=== PATIENT | female | born 1950 | race Caucasian/White ===

== ENCOUNTER 2018-07-15 08:30 | Observation (INO) | payer MEDICARE ==
[~2018-07-15 08:30] MED LIST: Buffered Lidocaine 1% SYRIN* 1 ML/SYRINGE INTRADERM ONE; Dexamethasone IV* 4 MG/ML 1 ML (4 MG) IV SLOW PU ONE; Famotidine TAB* 20 MG PO ONE; Lactated Ringers 1000 ML Bag* 1,000 ML IV SCH
[2018-07-15] MEDS ORDERED: Midazolam* 1 MG/ML 2 ML VIAL (2 MG) ONE (09:34)
[2018-07-15] MEDS ORDERED: fentaNYL* 50 MCG/ML 5 ML VIAL (250 MCG VIAL) ONE (09:34)
[2018-07-15] MEDS ORDERED: Rocuronium* 10 MG/ML VIAL ONE (09:34)
[2018-07-15] MEDS ORDERED: Lidocaine 2% PF * 5 ML VIAL ONE (09:35)
[2018-07-15] MEDS ORDERED: Propofol* 10 MG/ML 20 ML BTL ONE (09:35)
[2018-07-15] MEDS ORDERED: ceFAZolin 2 GM PREMIX in ORs 2 GM/50 ML BAG IVPB ONE (09:46)
[2018-07-15] MEDS ORDERED: Famotidine TAB* 20 MG ONE (09:46)
[2018-07-15] MEDS ORDERED: Dexamethasone IV* 4 MG/ML 1 ML (4 MG) ONE (09:46)
[2018-07-15] MEDS ORDERED: Lidocaine 1% MPF wEPI 200,000* 30 ML SDV ONE (11:47)
[2018-07-15] MEDS ORDERED: VASOPRESSIN 20 UNITS/ML 1 ML VIAL ONE (11:47)
[2018-07-15] MEDS ORDERED: Phenylephrine 40 MCG/ML SYRINGE ONE (12:43)
[2018-07-15] MEDS ORDERED: Ondansetron INJ* 2 MG/ML VIAL ONE (14:41)
[2018-07-15] MEDS ORDERED: Naloxone* 0.4 MG/ML 1 ML VIAL IV PRN (14:45)
[2018-07-15] MEDS ORDERED: HYDROmorphone INJ1* 1 MG/ML SYRINGE IV PRN ×2 (14:45→15:13)
[2018-07-15] MEDS ORDERED: oxyCODONE TAB* 5 MG TAB PO PRN (14:45)
[2018-07-15] MEDS ORDERED: PROCHLORPERAZINE INJ 5 MG/ML 2 ML VIAL IV PRN (14:45)
[2018-07-15] MEDS ORDERED: fentaNYL* 50 MCG/ML 2 ML VIAL (100 MCG VIAL) IV PRN (14:45)
[2018-07-15] MEDS ORDERED: DiMENhydriNATE IV* 50 MG/ML VIAL IV PUSH PRN (14:45)
[2018-07-15] MEDS ORDERED: Acetaminophen IV 1GM/100ML * 1,000 MG/100 ML VIAL IVPB ONE (14:45)
[2018-07-15] MEDS ORDERED: Ketorolac INJ* 30 MG/ML 1 ML VIAL IV PRN (15:13)
[2018-07-15] MEDS ORDERED: oxyCODONE/Acetamin 5/325 MG* TAB PO PRN (15:13)
[2018-07-15] MEDS ORDERED: Ondansetron INJ* 2 MG/ML VIAL IV PRN (15:13)
[2018-07-15] MEDS ORDERED: Docusate CAP* 100 MG PO PRN (15:27)
[2018-07-15] MEDS ORDERED: Acetaminophen IV 1GM/100ML * 100 ML ONE (15:30)
[2018-07-15] MEDS ORDERED: DiMENhydriNATE IV* 50 MG/ML VIAL ONE (15:44)
[2018-07-15] MEDS ORDERED: Lactated Ringers 1000 ML Bag* 1,000 ML IV SCH (16:00)
[2018-07-15] MEDS ORDERED: fentaNYL* 50 MCG/ML 2 ML VIAL (100 MCG VIAL) ONE (16:11)
[2018-07-15] MEDS: Ibuprofen TAB* 600 MG PO PRN (22:28)
--- NOTE | 2018-07-16 01:04 | OP ---
DATE OF OPERATION: 07/15/18 - ROOM #342 DATE OF : 52 SURGEON: Cong Bee MD VENEER LATHE OPERATOR: Dr. Busch. ANESTHESIA: General endotracheal tube. PRE-OP DIAGNOSIS: Complete procidentia. POST-OP DIAGNOSIS: Complete procidentia. OPERATIVE PROCEDURE: Vaginal hysterectomy, A and P repair, sacrospinous ligament suspension, and bilateral salpingectomy. ESTIMATED BLOOD LOSS: 150 cc. SPECIMENS: Include uterus and tubes. FINDINGS: On exam under anesthesia, the cervix came out beyond the vaginal opening and there was a third-degree cystocele and rectocele. On surgery, both ovaries appeared normal, both fallopian tubes appeared normal. DESCRIPTION OF PROCEDURE: The patient was identified, procedure identified as a vag hyst, A and P repair, sacrospinous ligament suspension, and salpingectomy. The patient was taken to the operating room, prepped and draped in the usual fashion in the dorsal lithotomy position under general anesthesia. A dilute vasopressin solution was injected at the cervicovaginal junction approximately 20 units in 100 cc. We used about approximately 30 cc of it in total. The Bovie was used to make a circumferential incision around the cervicovaginal junction and the vagina was dissected cephalad. The cul-de-sac was entered via sharp dissection. The Perez retractor was placed in the posterior vaginal aspect. The bladder and anterior vagina were dissected further cephalad and uterosacral ligaments were clamped, cut, and ligated x2. The anterior vesicoperitoneal fold was identified by putting a finger around the fundus and this was incised using the Bovie. The cardinal ligaments were then clamped, cut, and ligated using the LigaSure Impact. The broad ligament again was ligated using the LigaSure Impact. At the ovarian ligament and fundus , the Cora clamps were placed at the ovarian ligament, and using the LigaSure Impact, the uterus was excised from the ovarian ligaments. A suture ligature was used of 0 Polysorb to provide secure hemostasis on this pedicle. Both fallopian tubes were grasped with Babcocks; and, using the LigaSure, these fimbriae were excised on both sides. Both ovaries were inspected and appeared to be normal. A modified Preston stitch was placed through the uterosacral ligaments. Good hemostasis was achieved in the cuff using 0 Polysorb figure-of- eight sutures. At this time, attention was turned to the cystocele. The vaginal mucosa was dissected in the midline up to a level of approximately a centimeter caudal to the urethra. A Ferguson catheter was placed. The endopelvic fascia was dissected off the vaginal mucosa out laterally until it was at the level of the ischial tuberosities. The endopelvic fascia was then plicated in the midline using 0 PDS. The vaginal mucosa was reapproximated using 3-0 Polysorb in a running locked fashion along the anterior wall. The vaginal cuff was then closed using 0 Polysorb in a figure-of- eight fashion starting with angles and the Preston stitch was then tied down. Good hemostasis was again verified. Attention was then turned to the posterior portion of the procedure. A V-incision was made in the perineal body and the endopelvic fascia was dissected off the vaginal mucosa in the midline initially up to approximately 2 cm caudal to the cuff. The endopelvic fascia was then dissected caudally off the vaginal mucosa and the scar was also dissected back. The rectum was dissected to the left side as the iliac spine was identified and the sacrospinous ligament was identified. Staying approximately 2 fingerbreadths medial along the sacrospinous ligament, the bresky retractors_ were used to expose this and using the Jeff needle star route mail driver two 0 Prolene sutures were placed through the sacrospinous ligament. Good hemostasis was verified. The end of both 0 Prolenes was then placed through the very apex of the vaginal incision in a submucosal fashion and a wendy stitch was applied to both. A 3-0 Polysorb was placed at the apex to provide closure of the mucosa and both 0 Prolene were tied with good retraction of the vaginal cuff down to the level of the sacrospinous ligament. This was tied tight. The endopelvic fascia on the posterior wall was then plicated in the midline using again 0 PDS two suture. Vaginal mucosa was then closed using 3-0 Polysorb and Vicryl in a running fashion. Again, 0 PDS was used to close the perineal body and the perineal skin , and vaginal mucosa leading into it was closed using 3-0 Vicryl in a subcuticular and simple fashion. Good hemostasis was verified. The Ferguson was draining clear urine and the vagina was packed using 2-inch vaginal packing. All sponge and instrument counts were correct and the patient returned to the recovery room in stable condition. [id number]/[facility] #: [id number] MTDD
[2018-07-16 06:26] LABS: ABS Lymphocytes 1.8 10^3/ul (1.0-4.8); ABS Monocytes 0.9 10^3/ul (0-0.8); ABS Neutrophils 7.8 10^3/ul (1.5-7.7); Eosinophil % 0.1 %; Hematocrit 35 % (35-47); Hemoglobin 11.9 g/dL (12.0-16.0); Lymphocyte % 17.4 %; Mean Corpuscular HGB Conc 34 g/dL (31-36); Mean Corpuscular Hemoglobin 30 pg (27-31); Mean Corpuscular Volume 88 fL (80-97); Mean Platelet Volume 8.5 fL (7.4-10.4); Platelet Count 189 10^3/uL (150-450); Red Blood Count 4.01 10^6 /uL (3.70-4.87); Red Cell Distribution Width 13 % (10.5-15); White Blood Count 10.5 10^3/uL (3.5-10.8)
[2018-07-16 08:24] VITALS: BP 117/61
[2018-07-16] MEDS: Ibuprofen TAB* 600 MG PO PRN (08:56)
== END 2018-07-16 15:03 | disposition home or self-care (01) ==
LOC: EDSTATUS 08:30 → AA 09:34 → INTOOBSV 09:34 → AA 10:07 → SSU 16:52
PROVIDERS: ADMIT Obstetrics & Gynecology; ATTEND Obstetrics & Gynecology
DX: N81.3 Complete uterovaginal prolapse (principal); I10 Essential (primary) hypertension; E78.5 Hyperlipidemia, unspecified; M54.9 Dorsalgia, unspecified; M81.0 Age-related osteoporosis without current pathological fracture; M19.90 Unspecified osteoarthritis, unspecified site; J45.909 Unspecified asthma, uncomplicated
CPT/HCPCS: 36415; 85025; 88305; 96374; 96375; 96376; A9270-GY; G0378; J0690; J1100; J1240; J2001; J2250; J2405; J2704; J3010

== ENCOUNTER 2018-07-23 08:55 | Inpatient (IN) | payer MEDICARE ==
[2018-07-23] MEDS ORDERED: oxyCODONE/Acetamin 5/325 MG* TAB PO PRN (09:14)
[2018-07-23 09:51] LABS: ABS Basophils 0.1 10^3/ul (0-0.2); ABS Eosinophils 0.1 10^3/ul (0-0.6); ABS Lymphocytes 0.7 10^3/ul (1.0-4.8); ABS Monocytes 1.3 10^3/ul (0-0.8); ABS Neutrophils 17.9 10^3/ul (1.5-7.7); Eosinophil % 0.4 %; Hematocrit 38 % (35-47); Hemoglobin 12.6 g/dL (12.0-16.0); Lymphocyte % 3.3 %; Mean Corpuscular HGB Conc 34 g/dL (31-36); Mean Corpuscular Hemoglobin 29 pg (27-31); Mean Corpuscular Volume 87 fL (80-97); Platelet Count 291 10^3/uL (150-450); Red Blood Count 4.32 10^6 /uL (3.70-4.87); Red Cell Distribution Width 13 % (10.5-15)
[2018-07-23] MEDS ORDERED: Lactated Ringers 1000 ML Bag* 1,000 ML IV SCH ×2 (10:00→15:00)
[2018-07-23 10:12] LABS: Albumin 3.7 g/dL (3.2-5.2); BUN/Creatinine Ratio 29.9 (8-20); Calcium 9.1 mg/dL (8.6-10.3); EGFR African American 78.8 (>60); EGFR Non-African American 65.1 (>60); Globulin 3.8 g/dL (2-4); Potassium 3.9 mmol/L (3.5-5.0); Total Bilirubin 1.2 mg/dL (0.2-1.0); Total Protein 7.5 g/dL (6.4-8.9)
[2018-07-23] MEDS ORDERED: Zosyn per Pharmacy* NOTE FOLLOW UP PRN (10:18)
[2018-07-23] MEDS ORDERED: ZOSYN 3.375 GM x ONE DOSE over 30 miuntes IVPB ×2 (10:30)
[2018-07-23 11:43] LABS: Urine Appearance Turbid; Urine Bacteria Absent (Absent); Urine Bilirubin Negative (Negative); Urine Blood 3+ (Negative); Urine Color Amber; Urine Glucose Negative (Negative); Urine Ketones Trace (Negative); Urine Nitrite Negative (Negative); Urine Protein 2+(100 mg/dL) (Negative); Urine Red Blood Cell 3+(>10/hpf) (Absent); Urine Squamous Epithelial Cell Present (Absent); Urine Urobilinogen Positive (Negative); Urine White Blood Cell 3+(>20/hpf) (Absent)
[2018-07-23] MEDS: Ondansetron INJ* 2 MG/ML VIAL IV PRN (12:18)
[2018-07-23] MEDS ORDERED: Iohexol 300* (CONTRAST) 10 ML SDV IV ONE (12:21)
[2018-07-23] MEDS ORDERED: Ondansetron INJ* 2 MG/ML VIAL IV ONE (14:38)
[2018-07-23] MEDS ORDERED: Dexamethasone IV* 4 MG/ML 1 ML (4 MG) IV SLOW PU ONE (14:38)
[2018-07-23] MEDS ORDERED: Famotidine IV* 10 MG/ML 2 ML (20 mg) IV ONE (14:38)
[2018-07-23] MEDS ORDERED: Buffered Lidocaine 1% SYRIN* 1 ML/SYRINGE INTRADERM ONE (14:38)
[2018-07-23] MEDS ORDERED: Midazolam* 1 MG/ML 5 ML VIAL (5 MG) ONE ×2 (15:11→16:00)
[2018-07-23] MEDS ORDERED: fentaNYL* 50 MCG/ML 2 ML VIAL (100 MCG VIAL) ONE (15:11)
[2018-07-23] MEDS ORDERED: KETAMINE HCL* 50 MG/ML 10 ML VIAL ONE (15:11)
[2018-07-23] MEDS: Piperacillin/Tazobac ADVAN(*) 3.375 GM in NS 0.9% 100 ML* 100 ML IVPB SCH ×2 (19:31→22:52)
--- NOTE | 2018-07-23 20:40 | OP ---
OPERATIVE REPORT: DATE OF OPERATION: 07/23/18 DATE OF : 52 SURGEON: Cong Bee MD ANESTHESIA: Spinal. PRE-OP DIAGNOSES: 1. Pelvic abscess. 2. Cuff abscess. POST-OP DIAGNOSES: 1. Pelvic abscess. 2. Cuff abscess. OPERATIVE PROCEDURE: Exploration of cuff and drainage of abscess, culture and placement of a [place] drain under ultrasound guidance. ESTIMATED BLOOD LOSS: Minimal. FINDINGS: On exploration of the cuff on ultrasound, there was a pocket of fluid that was accessed through the midline of the vaginal cuff and 200 cc of purulent fluid was obtained through this. The rest of the suture line was intact. DESCRIPTION OF PROCEDURE: The patient was identified, procedure identified as an exploration of the vaginal cuff. The patient was taken to the operating room , prepped and draped in usual fashion in the dorsal lithotomy position under spinal anesthesia. The weighted speculum was placed in the posterior vagina. A rekha was placed in the anterior vagina and a small area of purulence was noted right in the midline. This was probed with first a uterine sound and then progressively dilated up to a #27 Coley dilator. Each time the probe was passed or the dilator was passed, it was visualized on ultrasound and found to be within the pocket of fluid. Fluid was further drained using uterine dressing forceps and then Asepto with saline. Cultures were obtained of the purulent fluid. A Javad drain was placed at the end of the procedure within the abscess and then brought out through the vagina and rather than suture it to the actual vulva, it was tucked into the vagina to be removed at a later point. The patient tolerated the procedure well. Good hemostasis was verified. All sponge and instrument counts were correct and the patient returned to the recovery room in stable condition. [id number]/[facility] #: [id number] [facility]PITALSridevi
[2018-07-24] MEDS: Ondansetron INJ* 2 MG/ML VIAL IV PRN ×2 (04:12→15:18)
[2018-07-24] MEDS ORDERED: Morphine INJ* 2 MG/ML 1 ML SYRINGE (TWO MG - NEW SYRINGE VERSION) IV PRN (04:31)
[2018-07-24] MEDS: Piperacillin/Tazobac ADVAN(*) 3.375 GM in NS 0.9% 100 ML* 100 ML IVPB SCH ×3 (07:55→22:46)
[2018-07-24 08:37] LABS: ABS Eosinophils 0.1 10^3/ul (0-0.6); ABS Lymphocytes 0.8 10^3/ul (1.0-4.8); ABS Monocytes 1.1 10^3/ul (0-0.8); ABS Neutrophils 13.3 10^3/ul (1.5-7.7); Eosinophil % 0.5 %; Hematocrit 35 % (35-47); Hemoglobin 11.6 g/dL (12.0-16.0); Lymphocyte % 5.5 %; Mean Corpuscular HGB Conc 33 g/dL (31-36); Mean Corpuscular Hemoglobin 29 pg (27-31); Mean Corpuscular Volume 88 fL (80-97); Mean Platelet Volume 8.3 fL (7.4-10.4); Platelet Count 274 10^3/uL (150-450); Red Blood Count 4.02 10^6 /uL (3.70-4.87); Red Cell Distribution Width 13 % (10.5-15); White Blood Count 15.4 10^3/uL (3.5-10.8)
[2018-07-24] MEDS: Lactated Ringers 1000 ML Bag* 1,000 ML IV SCH ×2 (12:39→19:25)
--- NOTE | 2018-07-24 14:57 | PN ---
Progress Note - Progress Note Date of Service: 07/24/18 SOAP: Subjective: Pt is HD2 (POD1) after readmission with pelvic abscess after TVH one week ago. She underwent surgery yesterday, and Dr. Bee opened the vaginal cuff to drain the purulent collection. Large amt of materal came out, and with a chris drain in place, she continued to have drainage overnight. The drain fell out this AM. Today, pt reports she is feeling much better than yesterday. She did have a rough time at about 0300 when she was having more N/V and some diarrhea. Still on NPO diet other than sips of fluid. Ambulating and having good pain control. Objective: VS normal afebrile Gen: NAD, appears comfortable, good spirits Abd soft, mild tenderness, nondistended. BS+ in upper quadrants, but very hypoactive in the lower abd. Laboratory Last Values WBC 15.4 10^3/uL (3.5-10.8) H 07/24/18 07:46 RBC 4.02 10^6 /uL (3.70-4.87) 07/24/18 07:46 Hgb 11.6 g/dL (12.0-16.0) L 07/24/18 07:46 Hct 35 % (35-47) 07/24/18 07:46 MCV 88 fL (80-97) 07/24/18 07:46 MCH 29 pg (27-31) 07/24/18 07:46 MCHC 33 g/dL (31-36) 07/24/18 07:46 RDW 13 % (10.5-15) 07/24/18 07:46 Plt Count 274 10^3/uL (150-450) 07/24/18 07:46 MPV 8.3 fL (7.4-10.4) 07/24/18 07:46 Neut % (Auto) 86.6 % 07/24/18 07:46 Lymph % (Auto) 5.5 % 07/24/18 07:46 [place] % (Auto) 7.1 % 07/24/18 07:46 Eos % (Auto) 0.5 % 07/24/18 07:46 Baso % (Auto) 0.3 % 07/24/18 07:46 Absolute Neuts (auto) 13.3 10^3/ul (1.5-7.7) H 07/24/18 07:46 Absolute Lymphs (auto) 0.8 10^3/ul (1.0-4.8) L 07/24/18 07:46 Absolute Monos (auto) 1.1 10^3/ul (0-0.8) H 07/24/18 07:46 Absolute Eos (auto) 0.1 10^3/ul (0-0.6) 07/24/18 07:46 Absolute Basos (auto) 0.0 10^3/ul (0-0.2) 07/24/18 07:46 Absolute Nucleated RBC 0.0 10^3/ul 07/24/18 07:46 Nucleated RBC % 0.0 07/24/18 07:46 Sodium 131 mmol/L (135-145) L 07/23/18 09:44 Potassium 3.9 mmol/L (3.5-5.0) 07/23/18 09:44 Chloride 96 mmol/L (101-111) L 07/23/18 09:44 Carbon Dioxide 25 mmol/L (22-32) 07/23/18 09:44 Anion Gap 10 mmol/L (2-11) 07/23/18 09:44 BUN 26 mg/dL (6-24) H 07/23/18 09:44 Creatinine 0.87 mg/dL (0.51-0.95) 07/23/18 09:44 Est GFR ( Amer) 78.8 (>60) 07/23/18 09:44 Est GFR (Non-Af Amer) 65.1 (>60) 07/23/18 09:44 BUN/Creatinine Ratio 29.9 (8-20) H 07/23/18 09:44 Glucose 158 mg/dL (70-100) H 07/23/18 09:44 Calcium 9.1 mg/dL (8.6-10.3) 07/23/18 09:44 Total Bilirubin 1.20 mg/dL (0.2-1.0) H 07/23/18 09:44 AST 10 U/L (13-39) L 07/23/18 09:44 ALT 8 U/L (7-52) 07/23/18 09:44 Alkaline Phosphatase 102 U/L (34-104) 07/23/18 09:44 Total Protein 7.5 g/dL (6.4-8.9) 07/23/18 09:44 Albumin 3.7 g/dL (3.2-5.2) 07/23/18 09:44 Globulin 3.8 g/dL (2-4) 07/23/18 09:44 Albumin/Globulin Ratio 1.0 (1-3) 07/23/18 09:44 Urine Color Beti 07/23/18 09:45 Urine Appearance Turbid 07/23/18 09:45 Urine pH 5.0 (5-9) 07/23/18 09:45 Ur Specific [place] 1.030 (1.010-1.030) 07/23/18 09:45 Urine Protein 2+(100 mg/dl) (Negative) A 07/23/18 09:45 Urine Ketones Trace (Negative) A 07/23/18 09:45 Urine Blood 3+ (Negative) A 07/23/18 09:45 Urine Nitrate Negative (Negative) 07/23/18 09:45 Urine Bilirubin Negative (Negative) 07/23/18 09:45 Urine Urobilinogen Positive (Negative) A 07/23/18 09:45 Ur Leukocyte Esterase 2+ (Negative) A 07/23/18 09:45 Urine WBC (Auto) 3+(>20/hpf) (Absent) A 07/23/18 09:45 Urine RBC (Auto) 3+(>10/hpf) (Absent) A 07/23/18 09:45 Ur Squamous Epith Cells Present (Absent) A 07/23/18 09:45 Urine Bacteria Absent (Absent) 07/23/18 09:45 Hyaline Casts Present (Absent) A 07/23/18 09:45 Urine Glucose Negative (Negative) 07/23/18 09:45 Urine Ascorbic Acid * (Negative) A 07/23/18 09:45 Assessment: Pt appears improved, and WBC decreased from 20 to 15. Bowel obstruction/ileus still resolving. Plan: Will continue sips/chips diet until better bowel sounds. Continue IV abx. Plan discharge when tolerating food and feeling well.
--- NOTE | 2018-07-24 15:24 | PN ---
Progress Note - Progress Note Date of Service: 07/24/18 SOAP: Subjective: [pt feeling poorly. + bloating and nausea. negative flatus.] Objective: [vitals stable / afebrile/ urine output borderline chest cta cor -RR sands m/g/r abdomen with increased distension compared to yesterday. decreased bowel sounds. mildly tender. extremities nontender] wbc down to 15 from 20 cultures from abscess is pending Assessment: [pelvic abscess s/p exploration of cuff and drainage partial bowel obstruction vs. ileus related to abscess] Plan: [continue zosyn and bowel rest check cbc p33 in am ]
[2018-07-25] MEDS: Lactated Ringers 1000 ML Bag* 1,000 ML IV SCH ×3 (02:02→17:09)
[2018-07-25] MEDS: Ondansetron INJ* 2 MG/ML VIAL IV PRN (06:11)
[2018-07-25] MEDS ORDERED: Furosemide IV* 10 MG/ML 2 ML VIAL (20 MG) IV SLOW PU ONE (06:44)
[2018-07-25] MEDS: Piperacillin/Tazobac ADVAN(*) 3.375 GM in NS 0.9% 100 ML* 100 ML IVPB SCH (08:03)
[2018-07-25 08:22] LABS: ABS Basophils 0.2 10^3/ul (0-0.2); ABS Eosinophils 0.2 10^3/ul (0-0.6); ABS Lymphocytes 0.9 10^3/ul (1.0-4.8); ABS Monocytes 0.9 10^3/ul (0-0.8); ABS Neutrophils 14.3 10^3/ul (1.5-7.7); Eosinophil % 1.2 %; Hematocrit 38 % (35-47); Hemoglobin 12.7 g/dL (12.0-16.0); Lymphocyte % 5.5 %; Mean Corpuscular HGB Conc 33 g/dL (31-36); Mean Corpuscular Hemoglobin 29 pg (27-31); Mean Corpuscular Volume 88 fL (80-97); Mean Platelet Volume 8.1 fL (7.4-10.4); Platelet Count 327 10^3/uL (150-450); Red Blood Count 4.37 10^6 /uL (3.70-4.87); Red Cell Distribution Width 13 % (10.5-15); White Blood Count 16.4 10^3/uL (3.5-10.8)
[2018-07-25 08:31] LABS: Albumin 3.4 g/dL (3.2-5.2); Albumin/Globulin Ratio 0.9 (1-3); BUN/Creatinine Ratio 31.6 (8-20); Calcium 9.1 mg/dL (8.6-10.3); EGFR African American 128.4 (>60); EGFR Non-African American 106.1 (>60); Globulin 3.6 g/dL (2-4); Potassium 3.8 mmol/L (3.5-5.0); Total Bilirubin 0.5 mg/dL (0.2-1.0)
[2018-07-25] MEDS ORDERED: Gentamicin ADULT per pharmacy 1 NOTE MISC FOLLOW UP PRN (09:21)
[2018-07-25] MEDS ORDERED: Iohexol 300* (CONTRAST) 10 ML SDV IV ONE (09:45)
--- NOTE | 2018-07-25 09:59 | PN ---
Progress Note - Progress Note Date of Service: 07/25/18 SOAP: Subjective: [pt with vomiting this am. feels poorly. NG tube place recently.+ small Bm yesterday] Objective: [vitals bp- 146/70 p-79 rr - 19 temp - 98.1 ins 3534 / out 450 Some diuresis post lasix today 200 cc chest cta cor rr sans m/g/r abdomen + distension but slightly improved compared to yesterday absent bowel sounds] extremities nontender wbc increased to 16 from 15 yesterday spoke to microbiology today and clarified again that cultures from OR were abscess cultures and not genital . Showing Strep intermedius Assessment: [worsening bowel ileus vs obstruction / ? abscess improvement ] Plan: [Discussed case with Dr Coelho and He feels clindamyciin or zosyn should cover strep. I have chosen to switch her to amp gent and clindamycin to improve coverage He will see her tomorrow Will recheck CT to assess bowel and abscess Consult Dr Castle to help with decision making on the bowel]
[2018-07-25] MEDS ORDERED: NS 0.9% IVPB SCH (10:00)
[2018-07-25] MEDS ORDERED: GENTAMICIN ADULT IVPB SCH (10:00)
[2018-07-25] MEDS: Clindamycin 900 MG IVPREMIX(* 900 MG/50 ML SDV IV SCH ×3 (10:43→22:00)
[2018-07-25] MEDS: Ampicillin ADVAN(*) 2 GM in NS 0.9% 100 ML* 100 ML IVPB SCH ×3 (10:49→22:59)
--- NOTE | 2018-07-25 14:41 | CONS ---
CC: Dr. Cong Bee, BRAKE SHOE REBUILDER; Dr. Boyd Barraza, [facility] * CONSULTATION REPORT: DATE OF CONSULT: 07/25/18 PRIMARY CARE PHYSICIAN: Dr. Boyd Barraza. BRAKE SHOE REBUILDER: Dr. Cong Bee. REASON FOR CONSULT: Pelvic abscess, status post vaginal hysterectomy. HISTORY OF PRESENT ILLNESS: Ms. Angela Mann is a 67-year-old woman who underwent an elective vaginal hysterectomy with Dr. Bee for uterine prolapse on 07/15/18. She spent 1 night in the hospital and says that she was doing well and was discharged home the next day. Over the course of the next week, she remained afebrile. She was getting up and get around with minimal discomfort, and she had normal gastrointestinal and genitourinary function. On Thursday, she started to feel poorly. She is not sure if she had a fever, but she did not have shakes or chills. She had some loose bowel movements. This worsened over the next 24 hours and then she was seen in Dr. Bee's office this past 07/23/18. Laboratory workup at that time showed a white count of 20,000 with elevation in the absolute neutrophils. She had mild elevation in her total bilirubin and was slightly dehydrated. She also underwent a CAT scan of the abdomen and pelvis with oral and IV contrast on Thursday. This showed a fluid collection consistent with an abscess in the area of the previous surgery. Dr. Bee took her to the operating room on 07/23/18, where he transvaginally drained a rather large pelvic abscess. Cultures were obtained and at this point show Streptococcus intermedius and Enterococcus faecalis. Javad drain was left in place, but not sutured and it was dislodged the next day. Over the last 24 to 48 hours, she has been afebrile; however, she has developed some abdominal distention with nausea and vomiting requiring placement of a nasogastric tube. She has not been having flatus or loose bowel movements. She has minimal abdominal discomfort other than the distention. She underwent a second CT scan today, which shows persistent presence of fluid in the area of the previously drained abscess. There was no air in this area. There were also findings consistent with an ileus with small bowel distention, but no transition point. There was also some free intraabdominal fluid. Surgical consultation was obtained. PAST MEDICAL HISTORY: Arthritis, asthma, hypertension, osteoporosis, hyperlipidemia, and back pain. PAST SURGICAL HISTORY: Cyst removed from leg and a breast biopsy. She had no prior abdominal surgeries. MEDICATIONS: Include: 1. Fish oil. 2. Hydrochlorothiazide. 3. Albuterol. 4. Multiple supplements. ALLERGIES: She is allergic to NAPROSYN and METOPROLOL. SOCIAL HISTORY: She lives in [place]. She is presently and lives alone. She has family in the area. She is retired. She never smoked cigarettes and does not use alcohol. REVIEW OF SYSTEMS: As per above and 14-point review of systems otherwise unremarkable. PHYSICAL EXAM: Temperature 98.5, pulse 57, blood pressure 128/60. In general, she is a well-developed, well-nourished female, appears younger than her stated age. She is awake, alert, and conversive, and appears to be in no apparent distress. Her lungs were clear to auscultation with normal respiratory effort. Heart was regular rate and rhythm without murmurs, rubs, or gallops. Her abdomen was soft and slightly distended. She had diminished bowel sounds throughout. There are no prior surgical incisions or hernias noted. She has very mild tenderness in the upper abdomen with no rebound, peritoneal irritation , rigidity, or guarding throughout. There is no significant lower abdominal discomfort. LABORATORY DATA: Laboratory values today included a white blood cell count of 16,000, which was slightly elevated from yesterday. BUN and creatinine are normal. IMPRESSION AND PLAN: Pelvic abscess, status post vaginal hysterectomy 10 days ago. This abscess was drained on Thursday with Dr. Bee, but a CT scan today that was done to evaluate her elevated white blood cell count as well as abdominal distention shows reaccumulation of the fluid most likely undrained abscess. She also has findings consistent with an ileus. I discussed the findings with Dr. Bee. I believe that the fluid collection needs to be drained adequately and we would recommend return to the operating room if she does not improve in the next 24 hours and we would recommend an operative intervention with an increased opening in the vaginal cuff with drain placement that can be secured to allow adequate drainage. As far as the abdominal distention, I believe this is all an ileus secondary to the pelvic inflammation and I do not believe that she has small bowel obstruction. For now, I will leave the nasogastric tube in place as it seems to be controlling her nausea. This should resolve after the abscess collection is adequately drained and she is treated with the appropriate antibiotics. Presently, she is on ampicillin, clindamycin, and gentamicin. We will follow her closely with you. General Surgery will be available for assistance in draining of the pelvic abscess. If this is not able to be done transvaginally, I do not believe that there is a window for percutaneous drainage, but this should be reviewed with our interventional radiologist, Dr. Bucio. The third option would be a laparoscopy and/or laparotomy for adequate drainage, but hopefully this will not be required. [id number]/[facility] #: [id number] MTDD
[2018-07-25] MEDS ORDERED: Gentamicin Trough Level 1 NOTE MISC FOLLOW UP ONE (21:00)
[2018-07-25] MEDS ORDERED: Gentamicin ADULT (*) 400 MG in NS 0.9% 100 ML* 100 ML IVPB SCH (23:42)
[2018-07-26] MEDS: Lactated Ringers 1000 ML Bag* 1,000 ML IV SCH ×2 (00:43→08:21)
[2018-07-26] MEDS: Clindamycin 900 MG IVPREMIX(* 900 MG/50 ML SDV IV SCH ×4 (03:14→23:20)
[2018-07-26] MEDS: Ampicillin ADVAN(*) 2 GM in NS 0.9% 100 ML* 100 ML IVPB SCH ×4 (03:55→23:24)
[2018-07-26 06:36] LABS: ABS Basophils 0.1 10^3/ul (0-0.2); ABS Eosinophils 0.2 10^3/ul (0-0.6); ABS Lymphocytes 1.1 10^3/ul (1.0-4.8); ABS Monocytes 1.1 10^3/ul (0-0.8); ABS Neutrophils 11.4 10^3/ul (1.5-7.7); Eosinophil % 1.4 %; Hematocrit 34 % (35-47); Hemoglobin 11.3 g/dL (12.0-16.0); Lymphocyte % 8.1 %; Mean Corpuscular HGB Conc 33 g/dL (31-36); Mean Corpuscular Hemoglobin 29 pg (27-31); Mean Corpuscular Volume 87 fL (80-97); Mean Platelet Volume 7.3 fL (7.4-10.4); Platelet Count 285 10^3/uL (150-450); Red Cell Distribution Width 13 % (10.5-15); White Blood Count 13.9 10^3/uL (3.5-10.8)
[2018-07-26 06:53] LABS: Albumin 2.9 g/dL (3.2-5.2); Albumin/Globulin Ratio 0.9 (1-3); BUN/Creatinine Ratio 28.3 (8-20); Calcium 8.4 mg/dL (8.6-10.3); EGFR African American 139.7 (>60); EGFR Non-African American 115.4 (>60); Globulin 3.1 g/dL (2-4); Potassium 3.4 mmol/L (3.5-5.0); Total Bilirubin 0.3 mg/dL (0.2-1.0)
[2018-07-26] MEDS: Furosemide IV* 10 MG/ML 2 ML VIAL (20 MG) IV SLOW PU SCH (08:20)
[2018-07-26] MEDS ORDERED: Gentamicin ADULT (*) 400 MG in NS 0.9% 100 ML* 100 ML IVPB SCH (10:00)
--- NOTE | 2018-07-26 10:35 | PN ---
Progress Note - Progress Note Date of Service: 07/26/18 SOAP: Subjective: [pt istarting to feel a little better . Some flatus and small BM. no pain/ scant pink drainage from vagina/ ambulated x 2 yesterday ] Objective: [vitals stable afebrile ins- 4526 outs 3750 + 776 cc rene outs-2500 NG outs ] chest cta cor rr sans m/g/r abdomen-mildly distended . minimal bowel sounds. non tender to palpation extremities nontender wbc down to 13.9 from 16.4 potasium . 3.4 calcium lower along with albumin . will check tomorrow again culture so far show strep intermedius and enterococuss Assessment: []67 yo with post hysterectomy day # 11 pelvic abscess/ cuff drainage day #3/ ivantibioitcs day # 3 ileus / appreciate dr Castle's and dr Taylor help Plan: []continue NG switching to ceftriasxone from gentamicin per dr Coelho's recommendation Will await continued response to abx before considering further surgical intervention at this time will check NG placement given amount of output will add potassium to iv fluids recheck chem profile in am nutrition consult as pt npo now 4 days
--- NOTE | 2018-07-26 11:59 | PN ---
Progress Note - Progress Note Date of Service: 07/26/18 SOAP: Subjective: Feels better today Small amount of flatus, no BM Feels a little distended. Objective: Temp Pulse Resp BP Pulse Ox 97.4 F 76 16 141/62 97 07/26/18 07:09 07/26/18 07:09 07/26/18 08:00 07/26/18 07:09 07/26/18 07:09 Intake & Output 07/24/18 07/25/18 07/26/18 07/27/18 06:59 06:59 06:59 06:59 Intake Total 2390 3534 4526 Output Total 589 420 9502 Balance 1640 3084 776 Weight 166 lb 166 lb Intake: IV Fluids 1530 3209 2546 LR 400 1526 NS 1000 NS (0.9%) 30 NS 100ML, Zosyn 3.375G 100 IVPB 424 456 1394 ABX - AMPICILLIN 318 ABX - CLINDAMYCIN 226 ABX - GENTAMYCIN 112 zosyn 100 Oral 660 0 0 Output: NG Tube Drainage Amount 1250 Urine 450 Ferguson 368 456 1704 Other: Estimated Void Medium Small Large Date of Last Bowel 07/23/18 Movement # Bowel Movements 1 0 0 Estimated Stool Amount Small Medium Small Other Amount Description contrast # Voids 4 1 1 PEX: Comfortable Abd is soft and slightly distended. Minimal bowel sounds present. Mild lower tenderness, no guarding, rigidity or peritoneal irritation Laboratory Results - last 24 hr 07/25/18 07/26/18 07/26/18 20:52 06:28 06:28 WBC 13.9 H RBC 3.90 Hgb 11.3 L Hct 34 L MCV 87 MCH 29 MCHC 33 RDW 13 Plt Count 285 MPV 7.3 L Neut % (Auto) 82.4 Lymph % (Auto) 8.1 [place] % (Auto) 7.6 Eos % (Auto) 1.4 Baso % (Auto) 0.5 Absolute Neuts (auto) 11.4 H Absolute Lymphs (auto) 1.1 Absolute Monos (auto) 1.1 H Absolute Eos (auto) 0.2 Absolute Basos (auto) 0.1 Absolute Nucleated RBC 0.0 Nucleated RBC % 0.0 Sodium 138 Potassium 3.4 L Chloride 97 L Carbon Dioxide 31 Anion Gap 10 BUN 15 Creatinine 0.53 Est GFR ( Amer) 139.7 Est GFR (Non-Af Amer) 115.4 BUN/Creatinine Ratio 28.3 H Glucose 87 Calcium 8.4 L Total Bilirubin 0.30 AST 9 L ALT 6 L Alkaline Phosphatase 60 Total Protein 6.0 L Albumin 2.9 L Globulin 3.1 Albumin/Globulin Ratio 0.9 L Random Gentamicin 2.0 Assessment: Pelvic abscess s/p vaginal hysterectomy Ileus Plan: Continue present plan-NGT--ileus should resolve with improvement of pelvic abscess IV abx NGT drainage Discussed with patient, Dr. Bee and Dr. Zaman
--- NOTE | 2018-07-26 13:14 | CONS ---
CONSULTATION REPORT: DATE OF CONSULTATION: 07/26/18 REQUESTING PHYSICIAN: Dr. Bee.* CONSULTING SERVICE: Infectious Disease. REASON FOR CONSULT: Pelvic abscess. IMPRESSION: 1. Pelvic abscess with leukocytosis, which is improving after drainage through vaginal cuff on 07/23/18. She had, on 07/15/18, undergone vaginal hysterectomy and salpingectomy, and tolerated it well. The microbiology from the drained abscess shows Strep intermedius and enterococcus. Her white count was 20,000 on admission and 13,000 today. She is afebrile. 2. Ileus, postoperative. 3. Hypertension. RECOMMENDATION: Continue ampicillin and clindamycin. We will stop gentamicin and start ceftriaxone 1 g daily to cover strep and any gram negative that have not grown so far. Follow her daily to see how her symptoms and white count are doing. Assuming all continues to improve, we will plan on a prolonged course of antibiotics and followup of the pelvic abscess. HISTORY OF PRESENT ILLNESS: This is a 67-year-old woman who had a vaginal hysterectomy on 07/15/18 and did well initially. In the middle of last week, she started to feel malaise with some loose stools; no fevers, chills, or sweats. Her appetite was off. She saw Dr. Bee, who found her to have leukocytosis, obtained a CT scan that showed an abscess in the uterine bed which was 3 x 6 x 3 cm. He took her to the operating room that day for drainage. He said it did drain pus through the vaginal cuff. The drain was left in place initially. The cultures grew Strep intermedius and Enterococcus faecalis. Anaerobic culture is pending. She has had no fever here. She has developed an ileus. An NG tube was placed. Her white count was 15 on 07/24/18, 16 yesterday, and down to 13.9 today. She is feeling better today for the first time she thinks. She is passing flatus, small bowel movement. She has had an occasional burping. Her nausea is much better since the NG tube was placed. She denies abdominal pain and feels some lower pelvic pressure. She does have a Ferguson catheter present. PAST MEDICAL HISTORY: 1. Hypertension. 2. Uterine prolapse, status post vaginal hysterectomy. 3. Status post breast biopsy. 4. Osteoarthritis. 5. Asthma. 6. Osteoporosis. 7. Hyperlipidemia. MEDICATIONS: 1. Ampicillin 2 g every 6 hours. 2. Clindamycin 900 mg every 6 hours. 3. Gentamicin. 4. Oxycodone. 5. Tylenol as needed. ALLERGIES: NAPROSYN and METOPROLOL. FAMILY HISTORY: No current infections. SOCIAL HISTORY: She lives in [place]. She is a retired accountant certified public, has a horse. REVIEW OF SYSTEMS: All negative except as noted above as per 14-point review of systems. PHYSICAL EXAM: Vitals: Temperature 36.3, heart rate 76, respiratory rate 16, blood pressure 141/62, oxygen saturation 97% on room air. In general, she is awake, not in distress. Neurologic: She is oriented x3. Follows all commands. HEENT: There is no conjunctival hemorrhage. Oropharynx without lesions. Neck: Neck is supple without mass. Heart has regular rate and rhythm without murmurs, rubs, or gallops. Lungs are clear to auscultation bilaterally. Abdomen: Soft, slightly distended. There is mild tenderness to palpation diffusely. There is no rebound. There are decreased bowel sounds. Skin: There is no rash or splinter hemorrhage. Musculoskeletal: There is no spine tenderness to palpation. LAB DATA: White blood cell count 13.9, hemoglobin 11.3, platelets 285, creatinine is 0.5, calcium 8.4, albumin 2.9. Please see impression and recommendations outlined above, which I have discussed with Dr. Bee. Thank you for asking me to see Ms. Mann in consultation. [id number]/[facility] #: [id number] [facility]
[2018-07-26] MEDS: cefTRIAXone(*) 1 GM in NS 0.9% 50 ML* 50 ML IVPB SCH (15:27)
[2018-07-26] MEDS: D5W 20 MEQ KCL 1000 ML BAG* 1,000 ML IV SCH (15:43)
[2018-07-26] MEDS ORDERED: Gentamicin Trough Level 1 NOTE MISC FOLLOW UP ONE (21:00)
[2018-07-27] MEDS: D5W 20 MEQ KCL 1000 ML BAG* 1,000 ML IV SCH ×3 (00:52→15:55)
[2018-07-27] MEDS: Clindamycin 900 MG IVPREMIX(* 900 MG/50 ML SDV IV SCH ×4 (04:49→23:05)
[2018-07-27] MEDS: Ampicillin ADVAN(*) 2 GM in NS 0.9% 100 ML* 100 ML IVPB SCH ×4 (05:25→23:53)
[2018-07-27 07:03] LABS: ABS Eosinophils 0.2 10^3/ul (0-0.6); ABS Lymphocytes 1.1 10^3/ul (1.0-4.8); ABS Neutrophils 11.1 10^3/ul (1.5-7.7); Eosinophil % 1.8 %; Hematocrit 33 % (35-47); Hemoglobin 11.2 g/dL (12.0-16.0); Lymphocyte % 8.1 %; Mean Corpuscular HGB Conc 34 g/dL (31-36); Mean Corpuscular Hemoglobin 29 pg (27-31); Mean Corpuscular Volume 86 fL (80-97); Mean Platelet Volume 7.2 fL (7.4-10.4); Platelet Count 311 10^3/uL (150-450); Red Cell Distribution Width 13 % (10.5-15); White Blood Count 13.4 10^3/uL (3.5-10.8)
[2018-07-27 07:22] LABS: Albumin 2.8 g/dL (3.2-5.2); BUN/Creatinine Ratio 17.6 (8-20); Calcium 8.1 mg/dL (8.6-10.3); EGFR Non-African American 120.7 (>60); Globulin 2.9 g/dL (2-4); Potassium 3.2 mmol/L (3.5-5.0); Total Bilirubin 0.3 mg/dL (0.2-1.0); Total Protein 5.7 g/dL (6.4-8.9)
[2018-07-27] MEDS: Furosemide IV* 10 MG/ML 2 ML VIAL (20 MG) IV SLOW PU SCH (09:03)
--- NOTE | 2018-07-27 09:40 | PN ---
Progress Note - Progress Note Date of Service: 07/27/18 SOAP: Subjective: [pt sans flatus. no pain. no bm. walking . ] Objective: [vital stable afebrile temp 98.2 / p-66/ rr -16/ bp 139/59 ins - 2888 outs -3075 balance - (-189) chest cta cor rr abdome n soft nontender no rebound no guarding absent bowel sounds extremities nontender k+ 3.2 wbc 13.4 calcium - 81 ] Assessment: [continued ileus vs bowel obstruction/ pelvis abscess will have hospitalist help with electrolyte management ] Plan: []will watch /soon consider further drainage or possible diagnostic lap for bowel obstruction if no improvement D/w Dr Castle. he reevaluated today and feels later this am she was showing some clinical improvement and would reassess tomorrow. I agree with this and asked him to continue to collaborate with me on decision making
--- NOTE | 2018-07-27 14:01 | PN ---
Progress Note - Progress Note Date of Service: 07/27/18 SOAP: Subjective: Passed a little flatus and had a small BM this morning Ambulated in halls No abdominal pain Objective: Temp Pulse Resp BP Pulse Ox 97.4 F 75 16 127/62 95 07/27/18 11:14 07/27/18 11:14 07/27/18 11:14 07/27/18 11:14 07/27/18 11:14 Intake & Output 07/25/18 07/26/18 07/27/18 07/28/18 06:59 06:59 06:59 06:59 Intake Total 3534 4526 2886 0 Output Total 450 3750 3075 Balance 3084 776 -189 0 Weight 166 lb Intake: IV Fluids 3209 2546 2386 D5W 20 meq KCL 1112 LR 1526 1274 NS (0.9%) 30 IVPB 325 1980 500 ABX - AMPICILLIN 318 327 ABX - CLINDAMYCIN 226 173 ABX - GENTAMYCIN 112 Oral 0 0 0 0 Output: NG Tube Drainage Amount 1250 Urine 1450 Rene 450 2500 1625 Other: Estimated Void Small Large Large # Bowel Movements 0 0 0 Estimated Stool Amount Medium Small # Voids 1 1 0 PEX: Comfortable Abd is soft and slightly distended. Bowel sounds are hypoactive, normal in pitch. No tenderness or mass. Laboratory Results - last 24 hr 07/27/18 07/27/18 06:47 06:47 WBC 13.4 H RBC 3.80 Hgb 11.2 L Hct 33 L MCV 86 MCH 29 MCHC 34 RDW 13 Plt Count 311 MPV 7.2 L Neut % (Auto) 82.3 Lymph % (Auto) 8.1 [place] % (Auto) 7.4 Eos % (Auto) 1.8 Baso % (Auto) 0.4 Absolute Neuts (auto) 11.1 H Absolute Lymphs (auto) 1.1 Absolute Monos (auto) 1.0 H Absolute Eos (auto) 0.2 Absolute Basos (auto) 0.0 Absolute Nucleated RBC 0.0 Nucleated RBC % 0.0 Sodium 135 Potassium 3.2 L Chloride 94 L Carbon Dioxide 34 H Anion Gap 7 BUN 9 Creatinine 0.51 Est GFR ( Amer) 146.0 Est GFR (Non-Af Amer) 120.7 BUN/Creatinine Ratio 17.6 Glucose 164 H Calcium 8.1 L Total Bilirubin 0.30 AST 10 L ALT 6 L Alkaline Phosphatase 58 Total Protein 5.7 L Albumin 2.8 L Globulin 2.9 Albumin/Globulin Ratio 1.0 Assessment: Pelvic abscess s/p vaginal hysterectomy--s/p drainage Ileus v ? SBO--appears improved Plan: D/C rene Increase activity Decreased NGT output-follow and will D/C if continues to decrease IV abx Follow clinically-if WBC elevates, develops abd pain, fever or persistent ileus , will repeat CT scan. No indication at present for return to OR All discussed with patient and her family Discussed with Dr. Bee
--- NOTE | 2018-07-27 15:31 | PN ---
Progress Note - Progress Note Date of Service: 07/27/18 Note: Subjective: Pt is POD#4, presents sanders's position in bed watching TV without complaint. She says she is feeling better today and has produced some small amounts of flatus. She was able to ambulate this afternoon approximately 150 ft. She denies fevers, difficulty breathing, chest pains, abd pain, nausea or vomiting. Objective: Vital Signs: Temp Pulse Resp BP Pulse Ox 97.4 F 75 16 127/62 95 07/27/18 11:14 07/27/18 11:14 07/27/18 11:14 07/27/18 11:14 07/27/18 11:14 Intake & Output 07/27/18 07/27/18 07/27/18 06:59 14:59 22:59 Intake Total 815 0 Output Total 1025 2200 Balance -210 -2200 Intake: IV Fluids 642 D5W 20 meq KCL 642 IVPB 173 ABX - AMPICILLIN 115 ABX - CLINDAMYCIN 58 Oral 0 0 Output: Ferguson 1025 2200 Other: # Bowel Movements 0 0 Abnormal Lab Results 07/27/18 07/27/18 06:47 06:47 WBC 13.4 H RBC 3.80 Hgb 11.2 L Hct 33 L MCV 86 MCH 29 MCHC 34 RDW 13 Plt Count 311 MPV 7.2 L Neut % (Auto) 82.3 Lymph % (Auto) 8.1 [place] % (Auto) 7.4 Eos % (Auto) 1.8 Baso % (Auto) 0.4 Absolute Neuts (auto) 11.1 H Absolute Lymphs (auto) 1.1 Absolute Monos (auto) 1.0 H Absolute Eos (auto) 0.2 Absolute Basos (auto) 0.0 Absolute Nucleated RBC 0.0 Nucleated RBC % 0.0 Sodium 135 Potassium 3.2 L Chloride 94 L Carbon Dioxide 34 H Anion Gap 7 BUN 9 Creatinine 0.51 Est GFR ( Amer) 146.0 Est GFR (Non-Af Amer) 120.7 BUN/Creatinine Ratio 17.6 Glucose 164 H Calcium 8.1 L Total Bilirubin 0.30 AST 10 L ALT 6 L Alkaline Phosphatase 58 Total Protein 5.7 L Albumin 2.8 L Globulin 2.9 Albumin/Globulin Ratio 1.0 Exam: Pt is in bed and appears comfortable and in no acute distress. She has audible S1/S2 heart sounds with no murmurs, rubs, or gallops. Her lung sounds are clear and equal bilat with no wheezes, rales, or rhonchi. Her abd is slightly distended; no tenderness, masses, rigidity, or rebound tenderness on palpation. Her bowel sounds are hypoactive. Assessment: Ileus vs SBO--appears improved
[2018-07-27] MEDS: cefTRIAXone(*) 1 GM in NS 0.9% 50 ML* 50 ML IVPB SCH (15:48)
[2018-07-27 16:02] LABS: Magnesium 1.7 mg/dL (1.9-2.7)
[2018-07-27] MEDS: KCL 20 MEQ/100 ML IVPREMIX* 20 MEQ/100 ML BAG IV SCH ×2 (16:27→19:02)
[2018-07-27] MEDS ORDERED: Magnesium Sulfate 2 GM IV* 2 GM/50 ML BAG IVPB ONE (21:35)
--- NOTE | 2018-07-27 22:58 | CONS ---
HOSPITAL MEDICINE CONSULTATION REPORT: DATE OF CONSULT: 07/27/18. ATTENDING PHYSICIAN: Dr. Bee. CONSULTING PHYSICIAN: Dr. Martita Hughes (dictated by Michell Myrick NP). REASON FOR CONSULT: Hypokalemia. HISTORY OF PRESENT ILLNESS: Ms. Mann is a 67-year-old female with past medical history significant for asthma, hypertension, osteoporosis, arthritis, hyperlipidemia, and chronic back pain, who presented to the hospital from her [employer] office. The patient had an elective hysterectomy on 07/15/18. Postoperatively, she was doing quite well. The patient reports that on 07/21/18, she started feeling ill and she went to see Dr. Bee in his office. She had fever and chills. She was having loose BMs. She reports that the symptoms continued to worsen over the next [address] Bee on 07/23/18 and was brought to the hospital for admission. Her lab work at that time showed white count of 20,000 and increased neutrophils. She had a CT of the abdomen and pelvis on 07/23/18, which showed a fluid collection in the pelvis consistent with abscess. The patient went to the OR on 07/23/18 and had the abscess drained. The patient had a repeat CT on 07/25/18. CT was consistent with ileus and Surgery was consulted. The patient had an NG placed and she has been n.p.o. since. The patient reports that prior to having the NG placed, she was having nausea and vomiting and diffuse abdominal pain. Since the NG has been placed, those symptoms have resolved. The patient denies any fever, chest pain, edema. She denies any cough, hemoptysis or shortness of breath. Denies currently any nausea or vomiting, abdominal pain. Denies any diarrhea, hematuria, dysuria, focal weakness, or sensory loss. Denies any dysphagia, arthralgias, myalgias, rashes or lesions. Denies any open sores. The patient reports that she did have flatus today and did have 2 minimal stools. [facility] was asked to see the patient in consultation due to her hypokalemia. PAST MEDICAL HISTORY: Significant for: 1. Arthritis. 2. Asthma. 3. Hypertension. 4. Osteoporosis. 5. Hyperlipidemia. 6. Back pain. PAST SURGICAL HISTORY: 1. Hysterectomy. 2. Breast biopsy. 3. Bunionectomy. HOME MEDICATIONS: 1. Hydrochlorothiazide 12.5 mg p.o. daily. 2. Potassium 20 mEq p.o. daily. 3. Fish oil. 4. Ibuprofen 600 mg p.o. q.6 hours as needed for pain. 5. Vitamin E 400 units p.o. daily. 6. Vitamin D 2000 units p.o. daily. 7. Vitamin C 2000 units p.o. b.i.d. 8. Vitamin B12 1 tab p.o. daily. 9. Vitamin A 1 tab p.o. daily. 10. Turmeric root extract 1 tab p.o. daily. 11. Red yeast rice 600 mg p.o. daily. 12. Move Free 1 tablet p.o. daily. 13. MegaRed [place]-3 1 tablet p.o. daily. 14. Docusate 100 mg p.o. b.i.d. p.r.n. 15. Cinnamon 1000 mg p.o. daily. 16. Caltrate 1 tab p.o. daily. 17. Biotin 5000 units p.o. daily. 18. Airborne chewable 2 tabs p.o. once. ALLERGIES: METOPROLOL and NAPROXEN. FAMILY HISTORY: Father, brother with a history of stroke. Sister with a history of TIA. Brother of an NH at the age of 68. No reported history of diabetes. Father in his 50s of esophageal cancer. SOCIAL HISTORY: Denies any tobacco, alcohol or illicit drug use. She is . Surrogate decision maker in the event she is unable to make her own decisions is her daughter, Karlee. She is a full code. REVIEW OF SYSTEMS: An 11-point review of systems was completed. All pertinent positives are mentioned in the HPI, otherwise were negative. PHYSICAL EXAM: General: At this time, Ms. Mann is a 67-year-old female. She is resting comfortably on her bed, in her room. Vital Signs: Temperature was 97.4, heart rate 75, respirations 16, O2 saturation 95%, and blood pressure 127/62. HEENT: Head is atraumatic, normocephalic. Eyes: EOMs are intact. Sclerae anicteric and not pale. Oral mucosa appeared to be moist. Neck is supple. Lungs are clear to auscultation bilaterally. No wheezes, rales, or rhonchi. Cardiac: S1, S2. Regular rate and rhythm. No murmurs, rubs, or gallops. Abdomen is soft and nontender. Bowel sounds are hypoactive x4. Extremities: She can move all 4 extremities with 5/5 strength. Skin is intact. Neurologic: She is awake, alert and oriented x3. Speech is clear. Thought process is intact. There is no gross focal deficits. The patient is calm and cooperative. She is alert and oriented x4. She does have an NG tube to wall suction that is draining brown drainage. DIAGNOSTIC STUDIES/LAB DATA: WBC 13.4, RBC 3.80, hemoglobin 11.2, hematocrit was 33, platelet count was 311,000. Sodium 135, potassium.3.2, chloride 94, carbon dioxide was 34, anion gap was 7, BUN was 9, creatinine 0.51. Glucose was 164, calcium 8.1. Magnesium was 1.7. Total bilirubin was 0.30, ASTs were 10, ALTs were 6, alkaline phosphatase was 58, total protein was 5.7, albumin is 2.8. Urine on 07/23/18 was stepan, pH was 5.0, specific gravity was 1.030, urine protein was 2+, ketones were trace, blood was 3+, nitrites were negative, bilirubin was negative. Urobilinogen was positive. Leukocyte esterase was 2+, wbc's were 3+, rbc's were 3+, squamous epithelial cells were present, bacteria was absent. Hyaline casts were absent, glucose was negative, ascorbic acid was positive. She had a random gentamicin level on 07/25/18 which was 2.0. Her most recent CT of the abdomen and pelvis from 07/25/18 showed there are 2 foci of fluid in the pelvic peritoneal cavity corresponding with previous location of the uterus and right adnexa. Relative to most recent CT examination dated 01/01, there has been very small interval increase in the size. There has been interval appearance of perihepatic and lewis-splenic fluid as well, scattered trace peritoneal ascites. Dilated loops of proximal small bowel similar to the appearance and previous CT exam most consistent with ileus in this clinical scenario. Gastric tube is in place, the interval tip terminates in the gastric pylorus. It is recommended that the gastric tube be drawn back approximately 5 to 7 cm. There is trace pleural effusion, worsening bibasilar densities consistent with postoperative atelectasis. Recommend more frequent pulmonary toileting and distal colonic diverticulosis. She had an abdominal x-ray on , which showed a small bowel obstruction. ASSESSMENT AND PLAN: Ms. Mann is a 67-year-old female with a past medical history significant for arthritis, asthma, hypertension, osteoporosis, hyperlipidemia and back pain, who presented to [facility] on 07/23/18 and was found to have a pelvic abscess status post hysterectomy on 07/15/18. We were asked to see in consultation of the patient due to hypokalemia. Our recommendations are as follows: 1. Hypokalemia. I suspect this is related to NG tube placement and no nutrition. I would recommend continuing with her IV fluids with potassium. I will give her extra potassium 40 mEq and repeat a BMP in the a.m. I will also add a magnesium level and replace her magnesium as needed. The patient is also on furosemide 20 mg IV daily which will also deplete her potassium. 2. Hypomagnesemia. The patient's magnesium level is 1.7. I will give her 2 g of magnesium. 3. Pelvic infection. Management per [employer] and Surgery. 4. FEN. She is n.p.o. 5. Code status: She is a full code. 8. DVT prophylaxis: Per [employer]. She is on SCDs. TIME SPENT: Time spent on this consultation was approximately 45 minutes; greater than half that time was spent at the bedside reviewing events leading thus far to her hospitalization, performing my physical exam, and reviewing my plan of care. I have discussed with my attending, Dr. Martita Hughes; she is in agreement with my plan. MICHELL MYRICK, DIRECTOR OF IN SERVICE EDUCATION [id number]/[facility] #: [id number] [facility]
[2018-07-28] MEDS: D5W 20 MEQ KCL 1000 ML BAG* 1,000 ML IV SCH (00:06)
[2018-07-28] MEDS: Clindamycin 900 MG IVPREMIX(* 900 MG/50 ML SDV IV SCH ×2 (04:06→10:42)
[2018-07-28] MEDS: Ampicillin ADVAN(*) 2 GM in NS 0.9% 100 ML* 100 ML IVPB SCH ×4 (04:54→22:06)
[2018-07-28 06:59] LABS: Calcium 8.1 mg/dL (8.6-10.3); Magnesium 2.1 mg/dL (1.9-2.7); Potassium 4.1 mmol/L (3.5-5.0)
[2018-07-28 07:04] LABS: EGFR African American 149.4 (>60); EGFR Non-African American 123.4 (>60)
[2018-07-28 09:37] LABS: ABS Basophils 0.1 10^3/ul (0-0.2); ABS Eosinophils 0.2 10^3/ul (0-0.6); ABS Lymphocytes 1.3 10^3/ul (1.0-4.8); ABS Monocytes 0.8 10^3/ul (0-0.8); ABS Neutrophils 10.3 10^3/ul (1.5-7.7); Eosinophil % 1.9 %; Hematocrit 35 % (35-47); Hemoglobin 11.4 g/dL (12.0-16.0); Lymphocyte % 10.3 %; Mean Corpuscular HGB Conc 33 g/dL (31-36); Mean Corpuscular Hemoglobin 29 pg (27-31); Mean Corpuscular Volume 88 fL (80-97); Mean Platelet Volume 8.5 fL (7.4-10.4); Nucleated Red Blood Cells % 0.2; Platelet Count 195 10^3/uL (150-450); Red Blood Count 3.97 10^6 /uL (3.70-4.87); Red Cell Distribution Width 13 % (10.5-15); White Blood Count 12.8 10^3/uL (3.5-10.8)
--- NOTE | 2018-07-28 10:18 | PN ---
Progress Note - Progress Note Date of Service: 07/28/18 SOAP: Subjective: [pt with small amount of flatus/ small stool yesterday. no pain / not much flatus today/ feels better having her rene out] Objective: [vitals stable afebrile urine output good/ ngt with no documented output yesterday ins-4996 outs-4000 chest cta cor rr abdomen soft nontender. decreased bowel sounds. extremities nontender ]wbc -12.8 k+-4.2 Assessment:improving slowly [abscess signs of response to antibiotics. Bowel showing slight improvement Discussed at length management with Dr Castle and I will continue to defer bowel management to his judgment. I have made decisions regarding the management of the abscess . We will continue to collaborate on this. I spoke with Dr Coelho on the halfway management of the abscess appreciate medicines assistance with electrolytes] Plan: [NG is out continue triple antibiotics/ will need to decide about home iv antibiotics once we get to that point. ]
--- NOTE | 2018-07-28 10:35 | PN ---
Progress Note - Progress Note Date of Service: 07/28/18 SOAP: Subjective: cc: pelvic abscess HPI: 67 year old woman with pelvic abscess after hysterectomy; her pain is mostly gone. NG removed, passing some flatus. Walked a few laps yesterday. No fever or rash. Objective: Vital Signs Temp 36.6 C 07/28/18 07:22 Pulse 80 07/28/18 07:22 Resp 17 07/28/18 07:22 BP 140/73 07/28/18 07:22 Pulse Ox 96 07/28/18 07:22 Intake & Output 07/27/18 07/28/18 07/28/18 18:59 06:59 18:59 Intake Total 2035 2960 0 Output Total 3200 800 Balance -1164 2160 0 Intake: IV Fluids 2035 2960 ABX - CLINDAMYCIN 50 D5W 20 meq KCL 1945 2960 NS (0.9%) 40 Oral 0 0 0 Output: Urine 800 Ferguson 3200 Other: Estimated Void Large # Bowel Movements 0 0 Estimated Stool Amount Small # Voids 3 Gen:awake, no distress HEENT: no thrush Heart:RRR no murmur Lungs:CTA BL Abd: decr BS, soft, mildly distended Skin: no rash Laboratory Results - last 24 hr 07/27/18 07/28/18 07/28/18 06:47 06:05 06:05 WBC 12.8 H RBC 3.97 Hgb 11.4 L Hct 35 MCV 88 MCH 29 MCHC 33 RDW 13 Plt Count 195 MPV 8.5 Neut % (Auto) 80.7 Lymph % (Auto) 10.3 [place] % (Auto) 6.6 Eos % (Auto) 1.9 Baso % (Auto) 0.5 Absolute Neuts (auto) 10.3 H Absolute Lymphs (auto) 1.3 Absolute Monos (auto) 0.8 Absolute Eos (auto) 0.2 Absolute Basos (auto) 0.1 Absolute Nucleated RBC 0.0 Nucleated RBC % 0.2 Sodium 135 134 L Potassium 3.2 L 4.1 Chloride 94 L 100 L Carbon Dioxide 34 H 26 Anion Gap 7 8 BUN 9 5 L Creatinine 0.51 0.50 L Est GFR ( Amer) 146.0 149.4 Est GFR (Non-Af Amer) 120.7 123.4 BUN/Creatinine Ratio 17.6 10.0 Glucose 164 H 160 H Calcium 8.1 L 8.1 L Magnesium 1.7 L 2.1 Total Bilirubin 0.30 AST 10 L ALT 6 L Alkaline Phosphatase 58 Total Protein 5.7 L Albumin 2.8 L Globulin 2.9 Albumin/Globulin Ratio 1.0 Assessment: 1. pelvic abscess, polymicrobial, including GNAR; improving 2. s/p vaginal hysterctomy 3. ileus Plan: 1. continue ceftriaxone 1 gm IV Q12hrs, change clinda to flagyl to cover GNAR, PO vs IV for home depending on her progress
[2018-07-28] MEDS: Furosemide IV* 10 MG/ML 2 ML VIAL (20 MG) IV SLOW PU SCH (10:42)
--- NOTE | 2018-07-28 11:27 | PN ---
Progress Note - Progress Note Date of Service: 07/28/18 SOAP: Subjective: Continues to feel better today-ambulated around the halls quite a bit yesterday and today. Passed a small amount of flatus yesterday, none today No N/V No abdominal pain Voiding well Objective: Temp Pulse Resp BP Pulse Ox 97.9 F 80 17 140/73 96 07/28/18 07:22 07/28/18 07:22 07/28/18 07:22 07/28/18 07:22 07/28/18 07:22 Intake & Output 07/26/18 07/27/18 07/28/18 07/29/18 06:59 06:59 06:59 06:59 Intake Total 4526 2886 4996 0 Output Total 3750 3075 4000 Balance 776 -189 996 0 Weight 166 lb Intake: IV Fluids 2546 2386 4996 ABX - CLINDAMYCIN 50 D5W 20 meq KCL 1112 4906 LR 1526 1274 NS (0.9%) 30 40 IVPB 1980 500 ABX - AMPICILLIN 318 327 ABX - CLINDAMYCIN 226 173 ABX - GENTAMYCIN 112 Oral 0 0 0 0 Output: NG Tube Drainage Amount 1250 Urine 1450 800 Ferguson 2500 1625 3200 Other: Estimated Void Large Large Large # Bowel Movements 0 0 0 Estimated Stool Amount Small Small # Voids 1 0 3 PEX: Abdomen is soft and non-distended. Bowel sounds are present and are normoactive. No tenderness, guarding or peritoneal irritation. Laboratory Results - last 24 hr 07/27/18 07/28/18 07/28/18 06:47 06:05 06:05 WBC 12.8 H RBC 3.97 Hgb 11.4 L Hct 35 MCV 88 MCH 29 MCHC 33 RDW 13 Plt Count 195 MPV 8.5 Neut % (Auto) 80.7 Lymph % (Auto) 10.3 [place] % (Auto) 6.6 Eos % (Auto) 1.9 Baso % (Auto) 0.5 Absolute Neuts (auto) 10.3 H Absolute Lymphs (auto) 1.3 Absolute Monos (auto) 0.8 Absolute Eos (auto) 0.2 Absolute Basos (auto) 0.1 Absolute Nucleated RBC 0.0 Nucleated RBC % 0.2 Sodium 135 134 L Potassium 3.2 L 4.1 Chloride 94 L 100 L Carbon Dioxide 34 H 26 Anion Gap 7 8 BUN 9 5 L Creatinine 0.51 0.50 L Est GFR ( Amer) 146.0 149.4 Est GFR (Non-Af Amer) 120.7 123.4 BUN/Creatinine Ratio 17.6 10.0 Glucose 164 H 160 H Calcium 8.1 L 8.1 L Magnesium 1.7 L 2.1 Total Bilirubin 0.30 AST 10 L ALT 6 L Alkaline Phosphatase 58 Total Protein 5.7 L Albumin 2.8 L Globulin 2.9 Albumin/Globulin Ratio 1.0 Assessment: S?P vaginal hysterectomy-pelvic abscess S/P drainage Ileus v SBO Overall improvement-NGT output much decreased-she remains afebrile without tachycardia, abdominal pain and WBC down slightly. Plan: D/C NGT Ice chips IV abx Increase activity Hold off on further imaging for now-continue to follow clinically, no urgent indication for surgical intervention at this point. Discussed with patient, Dr. Bee and Dr. Zaman this morning.
[2018-07-28] MEDS: metroNIDAZOLE IV 500 MG/100ML* 500 MG/100 ML BAG IVPB SCH ×2 (12:30→22:39)
--- NOTE | 2018-07-28 12:36 | PN ---
Subjective Date of Service: 07/28/18 Interval History: VS: WNL Lab: slight hyponatremia; K 4.1; Mg 2.1 Pt is doing well. She has had only ice chips and gum. She is eager to eat, but has had no BM and passed no flatus recently, but has been up ambulating. She denies CP, SOB, abd pain, n/v/d. Ferguson removed yesterday and patient urinating well. NGT removed yesterday. Objective Active Medications: Furosemide (Lasix Iv*) 20 mg IV SLOW PU DAILY FEDE Heparin Sodium (Porcine) (Heparin Vial(*)) 5,000 units SUBCUT Q8HR FEDE Ampicillin Sodium 2 gm/ Sodium (Chloride) 100 mls @ 200 mls/hr IVPB Q6H FEDE Potassium Chloride/Dextrose (D5w 20 Meq Kcl 1000 Ml Bag*) 1,000 mls @ 150 mls/ hr IV PER RATE FEDE Ceftriaxone Sodium 1 gm/ (Sodium Chloride) 50 mls @ 200 mls/hr IVPB Q24H FEDE Metronidazole/Sodium Chloride (Flagyl 500 Mg Ivpb*) 500 mg in 100 mls @ 100 mls /hr IVPB Q12H FEDE Ondansetron HCl (Zofran Inj*) 4 mg IV Q6H PRN Oxycodone/Acetaminophen (Percocet 5/325 Tab*) 1 tab PO Q4H PRN Vital Signs: Temp Pulse Resp BP Pulse Ox 97.7 F 82 17 117/72 95 07/28/18 11:33 07/28/18 11:33 07/28/18 11:33 07/28/18 11:33 07/28/18 11:33 Oxygen Devices in Use Now: None Appearance: Pt is sitting up in bed with HOB elevated. SCDs in place. She is pleasant, cooperative, appropriate. She appears well and in no acute distress. Eyes: No Scleral Icterus, PERRLA Ears/Nose/Mouth/Throat: NL Teeth, Lips, Gums, Clear Oropharnyx, Mucous Membranes Moist Neck: NL Appearance and Movements; NL JVP, Trachea Midline Respiratory: Symmetrical Chest Expansion and Respiratory Effort, Clear to Auscultation Cardiovascular: NL Sounds; No Murmurs; No JVD, RRR, No Edema Abdominal: No Hepatosplenomegaly, - - BS hypoactive; abd nontender to palpation. Extremities: No Edema, No Clubbing, Cyanosis Neurological: Alert and Oriented x 3 Result Diagrams: 07/28/18 06:05 07/28/18 06:05 Microbiology and Other Data: Microbiology 07/23/18 16:00 Anaerobic Culture - Final Wound Peptoniphilus Asaccharolyticus Anaerobic Gram Negative Bacill 07/23/18 16:00 Genital Culture - Final Vaginal Streptococcus Intermedius Enterococcus Faecalis 07/23/18 09:45 Urine Culture - Final Urine 07/23/18 09:45 Stool Gross Appearance - Final Stool C. difficile DNA Amplification - Final 027 Presumptive NEGATIVE Toxigenic C.diff NEGATIVE Assess/Plan/Problems-Billing Assessment: 67 yof PMHx HTN, HLD, asthma, arthritis, osteoporosis, back pain, s/p vaginal hysterectomy 07/15/2018 presents with abscess on 07/23/2018, also found to have ileus vs SBO. - Patient Problems (1) Pelvic abscess Comment: -Management per gynecology, surgery (2) Electrolyte abnormality Comment: -Hypokalemia, hypomag resolved with repletion -D5w 20mEq IVF out of stock -Will continue D5w NS and continue to monitor K, Mg daily (3) DVT prophylaxis Comment: -Per Surgery, Gynecology: Heparin SQ (4) Full code status Status and Disposition: Inpatient. Discharge per Gynecology, Surgery.
[2018-07-28] MEDS: Heparin VIAL(*) 5000 UNITS/ML VIAL (FIVE THOUSAND) SUBCUT SCH ×2 (13:43→21:40)
[2018-07-28] MEDS: D5W 1000 ML BAG* 1,000 ML IV SCH ×2 (13:44→21:35)
[2018-07-28 13:53] LABS: Activated Partial Thrombo Time 29.6 seconds (26.0-36.3); INR 1.48 (0.82-1.09)
[2018-07-28] MEDS: cefTRIAXone(*) 1 GM in NS 0.9% 50 ML* 50 ML IVPB SCH (15:59)
[2018-07-29] MEDS: Ampicillin ADVAN(*) 2 GM in NS 0.9% 100 ML* 100 ML IVPB SCH ×2 (04:40→10:10)
[2018-07-29] MEDS: Heparin VIAL(*) 5000 UNITS/ML VIAL (FIVE THOUSAND) SUBCUT SCH ×3 (05:27→21:50)
[2018-07-29] MEDS: D5W 1000 ML BAG* 1,000 ML IV SCH (05:53)
[2018-07-29 06:36] LABS: ABS Basophils 0.1 10^3/ul (0-0.2); ABS Eosinophils 0.4 10^3/ul (0-0.6); ABS Lymphocytes 1.4 10^3/ul (1.0-4.8); ABS Monocytes 0.8 10^3/ul (0-0.8); Eosinophil % 3.1 %; Hematocrit 37 % (35-47); Hemoglobin 12.5 g/dL (12.0-16.0); Lymphocyte % 12.1 %; Mean Corpuscular HGB Conc 34 g/dL (31-36); Mean Corpuscular Hemoglobin 29 pg (27-31); Mean Corpuscular Volume 86 fL (80-97); Mean Platelet Volume 7.8 fL (7.4-10.4); Platelet Count 355 10^3/uL (150-450); Red Blood Count 4.28 10^6 /uL (3.70-4.87); Red Cell Distribution Width 13 % (10.5-15); White Blood Count 11.7 10^3/uL (3.5-10.8)
[2018-07-29 06:49] LABS: Calcium 8.8 mg/dL (8.6-10.3); Potassium 3.7 mmol/L (3.5-5.0)
[2018-07-29 06:54] LABS: BUN/Creatinine Ratio 7.8 (8-20); EGFR African American 112.3 (>60); EGFR Non-African American 92.8 (>60)
[2018-07-29] MEDS ORDERED: KCL 20 MEQ/100 ML IVPREMIX* 20 MEQ/100 ML BAG IV ONE (08:29)
--- NOTE | 2018-07-29 08:58 | PN ---
Progress Note - Progress Note Date of Service: 07/29/18 SOAP: Subjective: [pt still with some bloating and feeling like she needs to pass gas . no nausea or vomiting. ambulating but fatigued/ no flatus yet] Objective: [vitals stable / afebrile / ins -260/outs-2250 voided abdomen soft /slight distension/+ bowel sounds now still somewhat hypoactive extremities nontender.] wbc-11.7 Assessment: [abscess- wbc continues to improve ileus - improved ] Plan: [continue conservative management probable iv antibiotic for 2 weeks / will start arranging in hopes that ileus continues to improve and she can go home in next several days ]
[2018-07-29] MEDS: Ondansetron INJ* 2 MG/ML VIAL IV PRN (10:11)
[2018-07-29] MEDS: Furosemide IV* 10 MG/ML 2 ML VIAL (20 MG) IV SLOW PU SCH (10:11)
--- NOTE | 2018-07-29 10:44 | PN ---
Progress Note - Progress Note Date of Service: 07/29/18 SOAP: Subjective: cc: pelvic abscess HPI: 67 year old woman with pelvic abscess after hysterectomy; no pain. + flatus and small BM today. Feels hungry. No fever or rash. Objective: Vital Signs Temp 36.4 C 07/29/18 08:16 Pulse 74 07/29/18 08:16 Resp 18 07/29/18 08:16 BP 138/75 07/29/18 08:16 Pulse Ox 95 07/29/18 08:16 Intake & Output 07/28/18 07/29/18 07/29/18 18:59 06:59 18:59 Intake Total 110 150 Output Total 950 1300 Balance -840 -1150 Intake: IVPB 110 150 ABX - AMPICILLIN 50 flagyl 110 100 Oral 0 0 Output: Urine 950 1300 Other: Estimated Void Medium # Bowel Movements 0 # Voids 1 1 Gen:awake, no distress HEENT: no thrush Heart:RRR no murmur Lungs:CTA BL Abd: decr BS, soft, mildly distended Skin: no rash Laboratory Results - last 24 hr 07/28/18 07/29/18 07/29/18 13:10 05:58 05:58 WBC 11.7 H RBC 4.28 Hgb 12.5 Hct 37 MCV 86 MCH 29 MCHC 34 RDW 13 Plt Count 355 MPV 7.8 Neut % (Auto) 76.9 Lymph % (Auto) 12.1 [place] % (Auto) 7.1 Eos % (Auto) 3.1 Baso % (Auto) 0.8 Absolute Neuts (auto) 9.0 H Absolute Lymphs (auto) 1.4 Absolute Monos (auto) 0.8 Absolute Eos (auto) 0.4 Absolute Basos (auto) 0.1 Absolute Nucleated RBC 0.0 Nucleated RBC % 0.0 INR (Anticoag Therapy) 1.48 H APTT 29.6 Sodium 136 Potassium 3.7 Chloride 97 L Carbon Dioxide 30 Anion Gap 9 BUN 5 L Creatinine 0.64 Est GFR ( Amer) 112.3 Est GFR (Non-Af Amer) 92.8 BUN/Creatinine Ratio 7.8 L Glucose 136 H Calcium 8.8 Magnesium 07/29/18 05:58 WBC RBC Hgb Hct MCV MCH MCHC RDW Plt Count MPV Neut % (Auto) Lymph % (Auto) [place] % (Auto) Eos % (Auto) Baso % (Auto) Absolute Neuts (auto) Absolute Lymphs (auto) Absolute Monos (auto) Absolute Eos (auto) Absolute Basos (auto) Absolute Nucleated RBC Nucleated RBC % INR (Anticoag Therapy) APTT Sodium Potassium Chloride Carbon Dioxide Anion Gap BUN Creatinine Est GFR ( Amer) Est GFR (Non-Af Amer) BUN/Creatinine Ratio Glucose Calcium Magnesium 2.1 Assessment: 1. pelvic abscess, polymicrobial, including GNAR; improving WBC and overall feeling better 2. s/p vaginal hysterctomy 3. ileus, resolving Plan: 1. continue ceftriaxone 1 gm IV Q24 hrs, flagyl 500 mg IV Q12hrs , for discharge : ceftriaxone 1 gm IV Q24hrs and flagyl 500 mg po bid for [address] Bee
[2018-07-29] MEDS: metroNIDAZOLE IV 500 MG/100ML* 500 MG/100 ML BAG IVPB SCH ×2 (11:07→21:50)
--- NOTE | 2018-07-29 11:30 | PN ---
Progress Note - Progress Note Date of Service: 07/29/18 SOAP: Subjective: Had small loose/formed BM this AM with some flatus No N/V, has slight appetitie No abdominal pain Ambulating in halls She has small amount of serosanguinous fluid drain from vagina when she urinates Objective: Temp Pulse Resp BP Pulse Ox 97.6 F 74 18 138/75 95 07/29/18 08:16 07/29/18 08:16 07/29/18 08:16 07/29/18 08:16 07/29/18 08:16 PEX: Comfortable Abd is soft and slightly distended. No tenderness. Bowel sounds present, increased from yesterday and normoactive. Labs noted--WBC decreasing Assessment: Pelvic abscess s/p vaginal hysterectomy. Ileus v SBO-appears to be improving Plan: Sips of clears IV abx Increase activity Follow vaginal drainage-may just be spontaneous drainage from abscess cavity Discussed with patient.
[2018-07-29] MEDS ORDERED: D5W 1000 ML BAG* 1,000 ML IV SCH (11:31)
--- NOTE | 2018-07-29 12:24 | PN ---
Subjective Date of Service: 07/29/18 Interval History: VS: WNL Labs: Mg, K WNL Pt is doing well today. She c/o epigastric pain, bloating. She continues to have gum, ice, but hopes for advance to CL this afternoon. She had a BM today. She denies CP, SOB, cough, fever, n/v/d, pain in calves. Objective Active Medications: Furosemide (Lasix Iv*) 20 mg IV SLOW PU DAILY FEDE Heparin Sodium (Porcine) (Heparin Vial(*)) 5,000 units SUBCUT Q8HR FEDE Ceftriaxone Sodium 1 gm/ (Sodium Chloride) 50 mls @ 200 mls/hr IVPB Q24H FEDE Metronidazole/Sodium Chloride (Flagyl 500 Mg Ivpb*) 500 mg in 100 mls @ 100 mls /hr IVPB Q12H FEDE Dextrose (D5w 1000 Ml Bag*) 1,000 mls @ 60 mls/hr IV PER RATE FEDE Ondansetron HCl (Zofran Inj*) 4 mg IV Q6H PRN Oxycodone/Acetaminophen (Percocet 5/325 Tab*) 1 tab PO Q4H PRN Oxygen Devices in Use Now: None Appearance: Pt is sitting in bed resting. She appears well and in no acute distress. Eyes: No Scleral Icterus, PERRLA Ears/Nose/Mouth/Throat: NL Teeth, Lips, Gums, Clear Oropharnyx, Mucous Membranes Moist Neck: NL Appearance and Movements; NL JVP, Trachea Midline Respiratory: Symmetrical Chest Expansion and Respiratory Effort, Clear to Auscultation Cardiovascular: NL Sounds; No Murmurs; No JVD, RRR, No Edema Abdominal: No Hepatosplenomegaly - Mild epigastric TTP. BS hypoactive Extremities: No Edema, No Clubbing, Cyanosis Neurological: Alert and Oriented x 3 Result Diagrams: 07/29/18 05:58 07/29/18 05:58 Microbiology and Other Data: Microbiology 07/23/18 16:00 Anaerobic Culture - Final Wound Peptoniphilus Asaccharolyticus Anaerobic Gram Negative Bacill 07/23/18 16:00 Genital Culture - Final Vaginal Streptococcus Intermedius Enterococcus Faecalis 07/23/18 09:45 Urine Culture - Final Urine 07/23/18 09:45 Stool Gross Appearance - Final Stool C. difficile DNA Amplification - Final 027 Presumptive NEGATIVE Toxigenic C.diff NEGATIVE Assess/Plan/Problems-Billing Assessment: 67 yof PMHx HTN, HLD, asthma, arthritis, osteoporosis, back pain, s/p vaginal hysterectomy 07/15/2018 presents with abscess on 07/23/2018, also found to have ileus vs SBO. - Patient Problems (1) Pelvic abscess Comment: -Management per gynecology, surgery (2) Electrolyte abnormality Comment: -Hypokalemia, hypomag resolved with repletion and WNL x2 days -K 20 IV given today, due to low-normal K with decreased PO intake -Continue to monitor electrolytes (3) Indigestion Comment: -Pt c/o indigestion -Will start PPI (4) DVT prophylaxis Comment: -Per Surgery, Gynecology: Heparin SQ (5) Full code status Status and Disposition: Inpatient. Discharge per Gynecology, Surgery. Patient's electrolytes have been stable, and she is likely to advance to clear liquid diet this afternoon. I would recommend continued monitoring of electrolytes, including K and Mg. At this point, the hospitalist group will sign off. Thank you for the consultation, and please feel free to reconsult in the future for further recommendations.
[2018-07-29] MEDS: Pantoprazole IV* 40 MG IV SCH (14:03)
[2018-07-29] MEDS: cefTRIAXone(*) 1 GM in NS 0.9% 50 ML* 50 ML IVPB SCH (16:16)
[2018-07-30] MEDS: Heparin VIAL(*) 5000 UNITS/ML VIAL (FIVE THOUSAND) SUBCUT SCH ×3 (05:53→22:59)
[2018-07-30 06:35] LABS: Hematocrit 34 % (35-47); Hemoglobin 11.6 g/dL (12.0-16.0); Mean Corpuscular HGB Conc 34 g/dL (31-36); Mean Corpuscular Hemoglobin 30 pg (27-31); Mean Corpuscular Volume 86 fL (80-97); Mean Platelet Volume 7.5 fL (7.4-10.4); Platelet Count 319 10^3/uL (150-450); Red Blood Count 3.94 10^6 /uL (3.70-4.87); Red Cell Distribution Width 13 % (10.5-15); White Blood Count 9.9 10^3/uL (3.5-10.8)
[2018-07-30 06:47] LABS: ABS Basophils 0.1 10^3/ul (0-0.2); ABS Eosinophils 0.4 10^3/ul (0-0.6); ABS Lymphocytes 1.9 10^3/ul (1.0-4.8); ABS Monocytes 0.8 10^3/ul (0-0.8); ABS Neutrophils 6.7 10^3/ul (1.5-7.7); Eosinophil % 3.9 %; Lymphocyte % 18.9 %
[2018-07-30 06:48] LABS: BUN/Creatinine Ratio 9.8 (8-20); Calcium 8.4 mg/dL (8.6-10.3); EGFR African American 118.7 (>60); EGFR Non-African American 98.1 (>60); Potassium 3.8 mmol/L (3.5-5.0)
[2018-07-30] MEDS: Furosemide IV* 10 MG/ML 2 ML VIAL (20 MG) IV SLOW PU SCH (08:02)
--- NOTE | 2018-07-30 09:24 | PN ---
Progress Note - Progress Note Date of Service: 07/30/18 SOAP: Subjective: CC: Pelvic abscess HPI: Ms. Gonzalez is a 67 yo female with PMH significant for arthritis, asthma, HTN, HLD , back pain, and osteoporosis; who presented to the emergency room and was found to have a pelvic abscess after a hysterectomy. Denies fever, chills, abdominal pain, urinary symptoms, nausea, or vomiting. She reports dark colored loose stools starting yesterday, but had not moved her bowels for 1 weeks prior. She states that she is starting to have an appetite, and is hungry for eggs this morning. Objective: Vital Signs - 8 hr 07/30/18 07/30/18 03:21 07:37 Temperature 97.0 F 97.9 F Pulse Rate 63 74 Respiratory 20 16 Rate Blood Pressure 125/62 128/66 (mmHg) O2 Sat by Pulse 98 97 Oximetry Physical Exam: General: NAD, sitting up in bed Neurological: Alert and Oriented x4 HEENT: Moist MM, no thrush Cardiovascular: Heart rate regular Respiratory: Lung sounds clear bilateral Abdomen: Bowel sounds present; ABD soft, non tender and slightly distended Skin: No rash Laboratory Results - last 24 hr 07/30/18 07/30/18 06:00 06:00 WBC 9.9 RBC 3.94 Hgb 11.6 L Hct 34 L MCV 86 MCH 30 MCHC 34 RDW 13 Plt Count 319 MPV 7.5 Neut % (Auto) 68.1 Lymph % (Auto) 18.9 [place] % (Auto) 7.9 Eos % (Auto) 3.9 Baso % (Auto) 1.2 Absolute Neuts (auto) 6.7 Absolute Lymphs (auto) 1.9 Absolute Monos (auto) 0.8 Absolute Eos (auto) 0.4 Absolute Basos (auto) 0.1 Absolute Nucleated RBC 0.0 Nucleated RBC % 0.0 Sodium 136 Potassium 3.8 Chloride 102 Carbon Dioxide 29 Anion Gap 5 BUN 6 Creatinine 0.61 Est GFR ( Amer) 118.7 Est GFR (Non-Af Amer) 98.1 BUN/Creatinine Ratio 9.8 Glucose 112 H Calcium 8.4 L Microbiology 07/23/18 16:00 Anaerobic Culture - Final Wound Peptoniphilus Asaccharolyticus Anaerobic Gram Negative Bacill 07/23/18 16:00 Genital Culture - Final Vaginal Streptococcus Intermedius Enterococcus Faecalis 07/23/18 09:45 Urine Culture - Final Urine 07/23/18 09:45 Stool Gross Appearance - Final Stool C. difficile DNA Amplification - Final 027 Presumptive NEGATIVE Toxigenic C.diff NEGATIVE Assessment: 1. Pelvic abscess. S/P vaginal hysterectomy, A+P repair, sacrospinous ligament suspension, and bilateral salpingectomy on 07/15/18. S/P exploration of cuff and drainage of abscess and placement of a chris drain on 07/23/18. Wound and vaginal cultures with Peptoniphilus Asaccharolyticus, Anaerobic Gram Negative Bacill, Streptococcus Intermedius, and Enterococcus Faecalis. Leukocytosis has resolved and afebrile. 2. S/P vaginal hysterectomy 3. Ileus, resolving. Has been having loose stool since yesterday. Tolerating a clear liquid diet. Plan: Continue ceftriaxone 1 gm IV daily and Flagyl 500 mg IV Q12H while in the hospital. Plan for discharge will be ceftriaxone 1 gm IV daily and Flagyl 500 mg PO BID for 14 days. PICC line has been placed and will receive IV ABX teaching today. Followup with ID outpatient in 1-2 weeks.
--- NOTE | 2018-07-30 10:04 | PN ---
Progress Note - Progress Note Date of Service: 07/30/18 SOAP: Subjective: [pt feeling improved / some appetite/ + flatus and liquid bm yesterday/ serous/ sanguinus drainage from vagina Objective: [bp - 128/66 / p-74/ temp 97.9 ins- 9/ 410 of it oral outs 2375 balance neg 336 abdomen soft/ slight distension/ + bowel sounds nontender extremities notender wbc-9.9 hgb 11.6 Assessment: [hd # 8 s/p drainage of pelvic abscess/ slowly resolving ileus Plan: []continue abx x [address] Coelho. bowel advancement per Dr Castle
--- NOTE | 2018-07-30 10:44 | PN ---
Progress Note - Progress Note Date of Service: 07/30/18 SOAP: Subjective: Tolerated limited amount of clear liquids yesterday without N/V, still feels a little distended No abdominal pain Had another small darker BM last night, no flatus Ambulating in the halls Objective: Temp Pulse Resp BP Pulse Ox 97.9 F 74 16 128/66 97 07/30/18 07:37 07/30/18 07:37 07/30/18 07:37 07/30/18 07:37 07/30/18 07:37 Intake & Output 07/28/18 07/29/18 07/30/18 07/31/18 06:59 06:59 06:59 06:59 Intake Total 4996 260 2039 410 Output Total 4000 2250 2375 Balance 410 Intake: IV Fluids 4996 979 ABX - CLINDAMYCIN 50 D5W 949 D5W 20 meq KCL 4906 NS (0.9%) 40 30 IVPB 260 100 ABX - AMPICILLIN 50 flagyl 210 100 Oral 0 0 960 410 Output: Urine 800 2250 2375 Ferguson 3200 Other: Estimated Void Large Medium # Bowel Movements 0 0 1 Estimated Stool Amount Small Small # Voids 3 1 1 PEX: Abd is slightly distended. Bowel sounds are present, slightly hypoactive but no high pitched or tinkling. No abdominal tenderness Laboratory Results - last 24 hr 07/30/18 07/30/18 06:00 06:00 WBC 9.9 RBC 3.94 Hgb 11.6 L Hct 34 L MCV 86 MCH 30 MCHC 34 RDW 13 Plt Count 319 MPV 7.5 Neut % (Auto) 68.1 Lymph % (Auto) 18.9 [place] % (Auto) 7.9 Eos % (Auto) 3.9 Baso % (Auto) 1.2 Absolute Neuts (auto) 6.7 Absolute Lymphs (auto) 1.9 Absolute Monos (auto) 0.8 Absolute Eos (auto) 0.4 Absolute Basos (auto) 0.1 Absolute Nucleated RBC 0.0 Nucleated RBC % 0.0 Sodium 136 Potassium 3.8 Chloride 102 Carbon Dioxide 29 Anion Gap 5 BUN 6 Creatinine 0.61 Est GFR ( Amer) 118.7 Est GFR (Non-Af Amer) 98.1 BUN/Creatinine Ratio 9.8 Glucose 112 H Calcium 8.4 L Assessment: Pelvic abscess s/p vaginal hysterectomy-drained Ileus v SBO--slightly improved Normal WBC Plan: Full liquids and follow clinically-if she develops N/V or abdominal pain and distension, will consider repeat CT scan IV abx PPI, subq heparin Ambulate
[2018-07-30] MEDS: metroNIDAZOLE IV 500 MG/100ML* 500 MG/100 ML BAG IVPB SCH ×2 (11:49→22:59)
[2018-07-30] MEDS: Pantoprazole IV* 40 MG IV SCH (13:40)
[2018-07-30] MEDS: cefTRIAXone(*) 1 GM in NS 0.9% 50 ML* 50 ML IVPB SCH (16:39)
[2018-07-31] MEDS: Heparin VIAL(*) 5000 UNITS/ML VIAL (FIVE THOUSAND) SUBCUT SCH (05:19)
[2018-07-31 05:48] LABS: ABS Basophils 0.1 10^3/ul (0-0.2); ABS Eosinophils 0.5 10^3/ul (0-0.6); ABS Lymphocytes 2.1 10^3/ul (1.0-4.8); ABS Monocytes 0.8 10^3/ul (0-0.8); ABS Neutrophils 7.9 10^3/ul (1.5-7.7); Eosinophil % 4.1 %; Hematocrit 34 % (35-47); Hemoglobin 11.4 g/dL (12.0-16.0); Lymphocyte % 18.7 %; Mean Corpuscular HGB Conc 33 g/dL (31-36); Mean Corpuscular Hemoglobin 29 pg (27-31); Mean Corpuscular Volume 87 fL (80-97); Mean Platelet Volume 7.6 fL (7.4-10.4); Nucleated Red Blood Cells % 0.1; Platelet Count 365 10^3/uL (150-450); Red Blood Count 3.92 10^6 /uL (3.70-4.87); Red Cell Distribution Width 13 % (10.5-15); White Blood Count 11.3 10^3/uL (3.5-10.8)
--- NOTE | 2018-07-31 08:28 | PN ---
Progress Note - Progress Note Date of Service: 07/31/18 SOAP: Subjective: [] pt with some appetite now . + flatus / loose bm . wants to eat . Objective: []temp 97.7, bp- 131/59 , p-74 ins 3421 outs 1950 abdomen + bs . soft / some distension extremities nontender wbc increased to 11.2 today Assessment: []resolving ileus/ general surgery following abscess - concerned over increased wbc and recent change of antibiotics Plan: [Dr Castle to decide on diet advancement will d/w Dr Coelho increased wbc ]
--- NOTE | 2018-07-31 09:16 | PN ---
Progress Note - Progress Note Date of Service: 07/31/18 SOAP: Subjective: Tolerated regular food for breakfast Multiple loose BM's and passing large amounts of flatus overnight No abdominal pain, no N/V Ambulating in halls Objective: Temp Pulse Resp BP Pulse Ox 97.7 F 74 16 131/59 96 07/31/18 08:01 07/31/18 08:01 07/31/18 08:01 07/31/18 08:01 07/31/18 08:01 PEX: Abd is soft and slightly distended. No tenderness Laboratory Results - last 24 hr 07/30/18 07/31/18 12:48 05:15 WBC 11.3 H RBC 3.92 Hgb 11.4 L Hct 34 L MCV 87 MCH 29 MCHC 33 RDW 13 Plt Count 365 MPV 7.6 Neut % (Auto) 69.4 Lymph % (Auto) 18.7 [place] % (Auto) 6.9 Eos % (Auto) 4.1 Baso % (Auto) 0.9 Absolute Neuts (auto) 7.9 H Absolute Lymphs (auto) 2.1 Absolute Monos (auto) 0.8 Absolute Eos (auto) 0.5 Absolute Basos (auto) 0.1 Absolute Nucleated RBC 0.0 Nucleated RBC % 0.1 Magnesium 2.0 Assessment: Pelvic abscess s/p vaginal hysterectomy Ileus-resolved Plan: Regular diet, d/c IVF IV abx-plan to continue at home with VNA per ID OK for d/c from surgical standpoint-diet as tolerated, no activity restrictions , do not need to see in follow up as outpatient unless problems. Will discuss with Dr. Bee
[2018-07-31] MEDS: metroNIDAZOLE IV 500 MG/100ML* 500 MG/100 ML BAG IVPB SCH (11:03)
[2018-07-31 11:32] VITALS: BP 114/64
[2018-07-31] MEDS: cefTRIAXone(*) 1 GM in NS 0.9% 50 ML* 50 ML IVPB SCH (12:24)
--- NOTE | 2018-08-02 10:42 | PN ---
Progress Note - Progress Note Date of Service: 07/31/18 Note: discussed care with Dr Castle and Dr Coelho . Both feel pt is ready for discharge. Wbc fluctuation not of concern from their perspective. . Will plann to see in the office on Thursday. I have asked DrGardner to order the discharge. oral flagyl called in continue iv ceftriaxone
--- NOTE | 2018-08-02 14:52 | DS ---
CC: Dr. Barraza; Dr. Castle; Dr. Zaman; hospitalist program * DISCHARGE SUMMARY: DATE OF ADMISSION: 07/24/18 DATE OF DISCHARGE: 07/31/18 PRIMARY CARE DOCTOR: Dr. Barraza. CONSULTANTS: Dr. Castle. PRINCIPAL DIAGNOSIS: Post hysterectomy abscess. SECONDARY DIAGNOSES: Include: 1. Hypokalemia. 2. Ileus. PROCEDURES: Include transvaginal drainage of pelvic abscess. HISTORY: This is a 67-year-old approximately 1 week status post transvaginal hysterectomy, anterior and posterior colporrhaphy, and sacrospinous ligament suspension as well as salpingectomy, who presented to the office with nausea, vomiting, and diarrhea, was transferred as a direct admit to the hospital, had a CAT scan, which showed a collection of abscess in the area where the uterus was, above the cuff, involving the bowels. Her white count was 20 at that time. She was taken to the OR. Under spinal anesthesia, the cuff was explored and drained of 200 cc of purulent material, which was cultured and grew out Strep intermedius, enterococcus, and anaerobe, Peptoniphilus asaccharolyticus. Her C. diff was negative at that time. She was placed initially on Zosyn and her white count did come down to 15 on the first day; however, she continued to have a worsening ileus and required an NG tube. When her white count re- elevated, she was switched over to triple antibiotics including 2 g of ampicillin every 6 hours, gentamicin at pharmacy protocol and clindamycin at 900 mg IV q.8 hours. Patient continued to have an ileus through several days but slowly improved in her white count and the ileus slowly resolved over the course of the week. By the time of discharge, she was draining a small amount of pink discharge from the vagina. She was having loose stools and no longer not having any nausea or vomiting and was able to tolerate breakfast. Her white count on discharge was 11.3 and was feeling much improved over before. She will follow up in the office with Dr. Bee in 2 days and continue oral Flagyl and IV ceftriaxone for [address] Zaman and she is supposed to have a followup with Dr. Zaman in approximately a week. [id number]/[facility] #: [id number] [facility]
--- NOTE | 2018-08-26 11:38 | DS ---
ADDENDUM TO DISCHARGE SUMMARY CONDITION ON DISCHARGE: She was discharged in stable condition. DISPOSITION: Discharged to home on IV antibiotics. FOLLOW-UP: She should follow-up in a week with Dr. Bee. [id number]/[facility] #: [id number]
== END 2018-07-31 13:05 | disposition home or self-care (01) | DRG 857 ==
LOC: INTOOBSV 09:08 → MED 09:08 → OBSVTOIN 07-25 12:33
PROVIDERS: ADMIT Obstetrics & Gynecology; ATTEND Obstetrics & Gynecology
PROC: 0U9G7ZZ Drainage of Vagina, Via Natural or Artificial Opening (ICD-10-PCS; principal; 2018-07-25)
DX: T81.43XA Infection following a procedure, organ and space surgical site, initial encounter (principal); K56.7 Ileus, unspecified; E87.1 Hypo-osmolality and hyponatremia; N73.9 Female pelvic inflammatory disease, unspecified; J45.909 Unspecified asthma, uncomplicated; M19.90 Unspecified osteoarthritis, unspecified site; I10 Essential (primary) hypertension; M81.0 Age-related osteoporosis without current pathological fracture; E78.5 Hyperlipidemia, unspecified; G89.29 Other chronic pain; M54.9 Dorsalgia, unspecified; E86.0 Dehydration; E87.6 Hypokalemia; Z90.710 Acquired absence of both cervix and uterus; Z88.8 Allergy status to other drugs, medicaments and biological substances; Z88.5 Allergy status to narcotic agent; Z80.0 Family history of malignant neoplasm of digestive organs; Z80.8 Family history of malignant neoplasm of other organs or systems; Z82.3 Family history of stroke; R14.0 Abdominal distension (gaseous); R11.0 Nausea; E83.42 Hypomagnesemia; K30 Functional dyspepsia
CPT/HCPCS: 36415; 71045; 74018; 74176; 74177; 80048; 80053; 80170; 81003; 81015; 83735; 85025; 85610; 85730; 87070; 87073; 87076; 87077; 87086; 87186; 87493; A9270-GY; J0696; J1580; J1644; J1940; J2250; J2270; J2405; J2543; J3010; J3475; J3480; J3490; Q9967

== ENCOUNTER 2019-09-30 06:34 | Observation (INO) ==
[~2019-09-30 06:34] MED LIST changes: +Buffered Lidocaine 1% SYRIN 1 ml INTRADERM ONE; -Buffered Lidocaine 1% SYRIN* 1 ML/SYRINGE INTRADERM ONE; +Dexamethasone IV 4 MG/ML VIAL 1 ml VIAL IV SLOW PU ONE; -Dexamethasone IV* 4 MG/ML 1 ML (4 MG) IV SLOW PU ONE; +Famotidine IV 10 MG/ML 2 ml VIAL (20 mg) IV ONE; -Famotidine TAB* 20 MG PO ONE; +Heparin 5000 UNITS/ML 1 mL VIAL SUBCUT ONE; -Lactated Ringers 1000 ML Bag* 1,000 ML IV SCH; +Lactated Ringers 1000 ml BAG 1,000 ML IV SCH
[2019-09-30] MEDS ORDERED: Heparin 5000 UNITS/ML 1 mL VIAL ONE ×2 (06:57→08:08)
[2019-09-30] MEDS ORDERED: Dexamethasone IV 4 MG/ML VIAL 1 ml VIAL ONE (06:57)
[2019-09-30] MEDS ORDERED: Buffered Lidocaine 1% SYRIN 1 ml INTRADERM ONE (06:59)
[2019-09-30] MEDS ORDERED: ceFAZolin 2 GM PREMIX 2 GM/50 ML BAG ONE (06:59)
[2019-09-30] MEDS ORDERED: Famotidine IV 10 MG/ML 2 ml VIAL (20 mg) ONE (06:59)
[2019-09-30] MEDS ORDERED: Lidocaine 1% w EPI 1:100,000 MDV 20 ML VIAL ONE (08:07)
[2019-09-30] MEDS ORDERED: Bupivacaine 0.5% 50 ML MDV VIAL ONE (08:07)
[2019-09-30] MEDS ORDERED: Propofol 10 MG/ML 20 ML BTL ONE (08:30)
[2019-09-30] MEDS ORDERED: Midazolam 2 mg/2 ml VIAL 1 mg/ml 2 ml VIAL (2 mg) ONE (08:30)
[2019-09-30] MEDS ORDERED: Succinylcholine 200 mg VIAL 20 mg/ml 10 ml VIAL (200 mg) ONE (08:30)
[2019-09-30] MEDS ORDERED: fentaNYL 250 mcg/5 ml 50 MCG/ML 5 ml VIAL (250 MCG) ONE (08:30)
[2019-09-30] MEDS ORDERED: Metoclopramide 5 MG/ML VIAL (10 mg) ONE (08:30)
[2019-09-30] MEDS ORDERED: Ondansetron 4 mg VIAL 2 MG/ML 2 ml VIAL ONE (08:30)
[2019-09-30] MEDS ORDERED: Lidocaine 2% PF 5 ML VIAL ONE (08:31)
[2019-09-30] MEDS ORDERED: Rocuronium 50 mg VIAL 10 mg/ml 5 ml VIAL (50 mg) ONE ×3 (08:32→14:30)
[2019-09-30] MEDS ORDERED: Chlorhexidine MOUTHWASH 0.12% 15 ML UDC ONE ×3 (09:19→09:45)
[2019-09-30] MEDS ORDERED: Sodium Chloride 0.9% 10 ML ONE (09:49)
[2019-09-30] MEDS ORDERED: fentaNYL 100 mcg/2 ml 50 MCG/ML VIAL IV PRN (12:59)
[2019-09-30] MEDS ORDERED: Naloxone 0.4 mg VIAL 0.4 mg/ml 1 ml VIAL IV PRN (12:59)
[2019-09-30] MEDS ORDERED: Ondansetron 4 mg VIAL 2 MG/ML 2 ml VIAL IV PRN (12:59)
[2019-09-30] MEDS ORDERED: DiMENhydriNATE IV 50 mg/ml 1 ml VIAL IV PUSH PRN (12:59)
[2019-09-30] MEDS ORDERED: HYDROmorphone 1 MG/1 ML SYRINGE IV PRN (12:59)
[2019-09-30] MEDS ORDERED: Phenylephrine 40 mcg/mL 10mL (400mcg) SYRINGE ONE (14:06)
[2019-09-30] MEDS ORDERED: EPHEDrine (Pressors) 50 MG/ML VIAL ONE ×2 (14:06)
[2019-09-30] MEDS ORDERED: Morphine ER 30 mg TAB ** extended release PO ONE (17:00)
[2019-09-30] MEDS ORDERED: oxyCODONE/Acetamin 5/325 mg TAB PO PRN (21:05)
[2019-09-30] MEDS ORDERED: D5LR 1000 ml BAG 1,000 ML IV SCH (22:00)
[2019-10-01 07:39] VITALS: BP 111/52
[2019-10-03] MEDS ORDERED: Scopolamine PATCH Remove NOTE PATCH OFF ONE (06:00)
== END 2019-10-01 10:30 | disposition home or self-care (01) ==
LOC: OR 06:34 → INTOOBSV 20:36 → SSU 20:36
PROVIDERS: ADMIT Obstetrics & Gynecology; ATTEND Obstetrics & Gynecology